=== PATIENT | male | born 1950 | race Caucasian/White ===

== ENCOUNTER 2020-12-13 14:09 | Outpatient (REF) | payer MEDICARE, SELFPAY ==
[2020-12-13 15:25] LABS: Blood Urea Nitrogen 21 mg/dL (9-16); Estimated Glomerular Filt Rate 59
== END 2020-12-13 14:10 | disposition home or self-care (01) ==
LOC: HO.LAB 14:09
PROVIDERS: PCP Internal Medicine; Visit Provider Psychiatry & Neurology Neurology
DX: H81.09 Meniere's disease, unspecified ear (principal); I10 Essential (primary) hypertension
CPT/HCPCS: 36415; 82565; 84520

== ENCOUNTER 2020-12-21 10:39 | Outpatient (REF) | payer MEDICARE, SELFPAY ==
--- NOTE | ~2020-12-21 | MR_ITS ---
EXAMINATION: MR BRAIN WITHOUT AND WITH CONTRAST CLINICAL INFORMATION: Meniere syndrome. Vertigo and right-sided tinnitus. COMPARISON: None. TECHNIQUE: Multiplanar, multisequential imaging was obtained without and with intravenous contrast. Intravenous contrast: Gadavist 9 mL. FINDINGS: No diffusion abnormality is seen. Mild chronic white matter microangiopathic changes noted. The ventricles are normal in size. No mass effect or midline shift is evident. No extra-axial fluid collections are noted. The brainstem and cerebellum are normal. On postcontrast imaging, there is no abnormal parenchymal or leptomeningeal enhancement. The VII and VIII cranial nerve complexes are normal in course and caliber. No signal abnormality is visualized within the inner ear structures on the precontrast axial T1-weighted sequence. Fluid signal is preserved within the cochlea, semicircular canals, and vestibule on the high-resolution axial FIESTA sequence. No cerebellopontine angle lesion is noted. There is no abnormal labyrinthine or intracanalicular enhancement on postcontrast imaging. The craniovertebral junction, marrow signal, and midline structures are normal. The gradient refocused acquisition is normal. The visualized portions of the major intracranial flow voids at the level of the [place] are preserved. The dural venous sinus flow voids are maintained. The mastoid air cells are well aerated. There is a small cyst along the floor of the left maxillary sinus which may be associated with the underlying molar tooth roots. MR/MR head/brain wo/w con IMPRESSION: No retrocochlear pathology. Mild chronic white matter microangiopathy. Incidental small 1.3 cm cyst along the floor of the left maxillary sinus which may represent a retention cyst or possibly a radicular cyst associated with the underlying molar tooth roots; clinically correlate.
== END 2020-12-21 10:40 | disposition home or self-care (01) ==
LOC: HO.MRI 10:39
PROVIDERS: PCP Internal Medicine; Visit Provider Psychiatry & Neurology Neurology
DX: H81.09 Meniere's disease, unspecified ear (principal)
CPT/HCPCS: 70553; A9585

== ENCOUNTER → 2021-03-21 07:07 | Outpatient (REF) | payer MEDICARE, SELFPAY ==
--- NOTE | 2021-03-21 06:30 | CA_ITS ---
Transthoracic Echocardiogram Patient (Last, First, Middle): Olvin Figueroa, Gender: Male Date of : 1950 Age: 70 Procedure Date: 03/21/2021 Procedure Type: Transthoracic Echocardiogram Location: OP Height: 177.8 cm Weight: 88.45 kg BSA: 2.06 m2 Heart Rate: bpm BP: 122 / 68 mmHg Director Of Recreation Therapy: Referring MD: Derek Delacruz MD Symptoms: SPELLS, TACHY Study Quality: Fair ECG Rhythm: Sinus Conclusions: - The left ventricular systolic function is normal. The visually estimated ejection fraction is between 60-65%. - There is mild mitral valve regurgitation. Findings Left Ventricle Normal left ventricular cavity size. The left ventricular systolic function is normal. The visually estimated ejection fraction is between 60-65%. There is no evidence of regional wall motion abnormalities. Diastolic function is normal for age. Mild concentric left ventricular hypertrophy but septal thickness is more prominent. Right Ventricle Normal right ventricular cavity size and systolic function. Atria Both atria are normal in size. Aortic Valve There is a normal trileaflet aortic valve. There is no aortic valve stenosis. There is no aortic valve regurgitation. Mitral Valve The mitral valve appears normal. There is mild mitral valve regurgitation. There is no mitral valve stenosis. Pulmonic Valve The pulmonic valve was not well visualized. Tricuspid Valve Normal tricuspid valve structure. There is trace tricuspid valve regurgitation. The pulmonary artery systolic pressure is normal. Great Vessels The asc aorta and aortic arch are normal in size. Venous The inferior vena cava is normal in size and collapses greater than 50% with inspiration. Pericardium/Pleural There is no evidence of pericardial effusion. Prior Study Comparison No prior study available for comparison. Measurements 2D Linear Measurements RVIDd: 2.68 RVIDd Index: 1.30 IVSd: 1.22 0.6-0.9/0.6-1.0 cm LVIDd: 4.96 3.9-5.3/4.2-5.9 cm LVIDd Index: 2.41 2.4-3.2/2.2-3.1 cm/m2 LVIDs: 3.39 2.0-3.6 cm LVPWd: 1.10 0.7-1.1 cm Ao Root: 3.80 2.1-3.5 cm LA Diam: 4.40 2.7-3.8/3.0-4.0 cm LAIDs Index: 2.14 1.5-2.3 cm/m2 LV Mass: 274.36 67-162/88-224 g LV Mass Index: 133.18 43-95/49-115 g/m2 LVOT Diam: 2.10 3.0+(-)1.3 cm 2D Systolic Function EF 4C: 61.30 >55% EF 2C: 61.80 >55% EF BiP: 62.10 >55% Mitral Valve MV Pk E: 0.68 MV PK A: 0.38 MV Decel Time: 203.00 E/A: 1.80 E'Lateral: 9.25 E'Medial: 6.53 E/E' Med: 10.40 E/E' Lat: 7.30 MR Vol - PW Dopp: 11.76 MR VTI: 1.47 MR ERO: 8.00 MR Alias Josh: 0.42 MR RAD: 0.40 Aortic Valve AoV Pk Josh: 1.12 AoV Mn Josh: 0.89 AoV VTI: 0.25 AoV Pk Grad: 5.00 Aov Mn Grad: 3.00 DAYA Cont.VTI: 3.64 LVOT LVOT Pk Josh: 1.09 LVOT Mn Josh: 0.74 LVOT VTI: 0.26 LVOT Pk Grad: 5.00 LVOT Mn Grad: 3.00 LVOT Diam: 2.10 LVOT Area: 3.46 Diastolic Function MV Pk E: 0.68 MV Pk A: 0.38 E/A: 1.80 E'Medial: 6.53 E/E' Med: 10.40 E' Laterial: 9.25 E/E' Lat: 7.30 Tricuspid Valve TR Pk Josh: 2.35 TR Pk Grad: 22.00 RA Press: 3.00 RVSP: 25.00 Great Vessels Aorta Ao Root-2D: 3.80 2.0-3.7 cm Ao Asc: 3.70 2.1-3.4 cm Ao Arch: 3.00 Updated in Other Vendor System with Status of Final Jose Dunn MD electronically signed on 03/21/2021 10:20:08 AM with status of Final
== END ==
LOC: HO.CARD 07:07
PROVIDERS: Visit Provider Psychiatry & Neurology Neurology
DX: R00.0 Tachycardia, unspecified (principal); R56.9 Unspecified convulsions
CPT/HCPCS: 93306

== ENCOUNTER → 2021-03-31 13:10 | Outpatient (REF) | payer MEDICARE, SELFPAY ==
--- NOTE | 2021-03-31 | ECG_ITS ---
Hook-up date: 2021-03-31 13:29:00 Duration: 47:59:00 Test Indications: TACHYCARDIA Medications: 280305 QRS complexes 258 Ventricular ectopics which represent <1 % of total QRS comp. 7200 Supraventricular ectopics which represent 3 % of total QRS comp. * Paced QRS complexs which represent % of total QRS comp. VENTRICULAR ECTOPY 258 Isolated 0 Bigeminal Cycles 0 Couplets 0 Runs 0 Beats in Runs * Beats LONGEST at * BPM at :: -- * Beats FASTEST at * BPM at :: -- SUPRAVENTRICULAR ECTOPY 4206 Isolated 475 Couplets 232 Runs 2044 Beats in Runs 805 Beats LONGEST at 198 BPM at 19:15:20 2021-04-01 805 Beats FASTEST at 198 BPM at 19:15:20 2021-04-01 HEART RATES 45 MIN at 02:14:45 2021-04-02 71 AVG 214 MAX at 19:18:31 2021-04-01 LONGEST RR 1.6960 secs at 05:08:50 2021-04-02 S-T LEVELS Channel 1 - 128 mm at 13:29:00 2021-03-31 - 128 mm at 13:29:00 2021-03-31 Channel 2 - 128 mm at 13:29:00 2021-03-31 - 128 mm at 13:29:00 2021-03-31 Channel 3 - 128 mm at 03:24:81 -- - 128 mm at 03:24:81 Basic rhythm Normal sinus rhythm No long pause or profound bradycardia Frequent Premature atrial complexes One 805 beat long episode of SVT at 198 bpm. Patient reported symptoms of dizziness correlated with SVT Referred By: Derek Delacruz Overread By: ERIBERTO CHAWLA MD
== END ==
LOC: HO.CARD 13:10
PROVIDERS: PCP Internal Medicine; Visit Provider Psychiatry & Neurology Neurology
DX: R56.9 Unspecified convulsions (principal); R00.0 Tachycardia, unspecified
CPT/HCPCS: 93225; 93226

== ENCOUNTER 2024-11-04 13:15 | Outpatient (AMB) | payer MEDICARE, SELFPAY ==
--- NOTE | 2024-11-04 13:16 | MHC.OFFVIS ---
Vital Signs 11/04/24 13:19 Height 5 ft 10 in Weight 188 lb BMI 27.0 BP 126/68 Blood Pressure Location Rt brachial Position Sitting Pulse 85 Pulse Oximetry (%) 99 Oxygen Delivery Method Room Air Intake Visit Reasons: COPD Alternative Dispute Resolution Mediator Required: No Bottoming Room Inspector: Bottoming Room Inspector offered & declined Accompanied by: Self / Same As Patient Allergies labetalol Allergy (Verified 11/04/24 13:32) Unknown Medication List - Last Reconciled 11/04/24 by Heidy Hull LPN aspirin (Adult Aspirin Regimen) 81 mg PO DAILY dicyclomine 20 mg PO TID PRN famotidine 40 mg PO BEDTIME finasteride 5 mg PO DAILY hydrochlorothiazide 25 mg PO DAILY lisinopril 10 mg PO DAILY loratadine 10 mg PO DAILY zolpidem 10 mg PO BEDTIME PRN HPI HPI COPD: Details: Olvin is a pleasant 74 year old male, never smoker, with underlying asthma, COPD, Osorio's esophagus, GERD, CKD, BPH, HTN, HLD. RA, seizure disorder and cardiac arrhthymia s/p ablation. He was referred by PCP for pulmonary evaluation. He was previously under the care of [facility] however due to insurance coverage had to switch providers. He reports being diagnosed with COPD 5 years ago based of prior PFT however experiences minimal symptoms. He reports occasional dyspnea on moderate exertion and intermittent dry cough. He reports one episode of wheezing last year in which he required albuterol otherwise has not used in years. Of note, this exacerbation was triggered by significant reflux. He endorses reflux in the past however has been well controlled using multiple supplements. He reports h/o childhood asthma and mild seasonal allergies. He denies any occupational exposures. He is up to date on vaccinations. [facility] Social History (Updated 11/04/24 @ 13:24 by Heidy Hull LPN) Patient Tobacco Use Status: Never used Tobacco Review of Systems Const Denies chills, Denies excessive sweating, Denies fever(s), Denies headache(s) and Denies night sweats Eyes Denies dry eyes, Denies irritation and Denies itchy eyes ENT Reports Normal hearing present, Denies headache(s), Denies nasal congestion, Denies nasal discharge, Denies post nasal drip and Denies sore throat Card Denies chest pain, Denies chest pain at rest, Denies chest pain with activity, Denies claudication, Denies leg edema, Denies orthopnea and Denies paroxysmal nocturnal dyspnea Resp Denies chest congestion, Denies excessive phlegm production, Denies pain on inspiration, Denies pain with cough, Denies stridor and Denies wheezing Musc Denies myalgias Neuro Reports Normal hearing present and Denies headache(s) Endo Denies excessive sweating Karl/Lymph Denies lymphadenopathy Aller/Immun Denies itchy eyes, Denies seasonal rhinorrhea and Denies wheezing Physical Exam Vital Signs: Last Vital Signs Pulse 85 11/04/24 13:19 BP 126/68 11/04/24 13:19 Pulse Ox 99 11/04/24 13:19 Oxygen Delivery Method Room Air 11/04/24 13:19 BMI result Body Mass Index 27.0 Const General: cooperative, healthy appearing, comfortable, no acute distress, well developed and alert Orientation/consciousness: patient oriented x3 Limitations: no limitations HEENT Head: Yes normal to inspection, Yes normocephalic and Yes atraumatic Ears: hearing grossly normal bilaterally and external ears normal Eyes General: appearance normal, both eyes and all related structures Eyelids: Yes eyelids normal Sclerae: sclerae normal EOM: EOMs intact bilaterally Neck Neck: Yes normal visual inspection and Yes no lymphadenopathy Lymphatic: no lymphadenopathy noted Chest Chest palpation & inspection: normal inspection of the chest Resp Effort & Inspection: normal respiratory effort, able to speak in complete sentences, no audible wheezes, no cough, no stridor, not tachypneic, no tripod positioning and no use of accessory muscles Auscultation: clear to auscultation bilaterally Cardio Jugular venous distension: no JVD Rate: regular rate Rhythm: regular rhythm Skin Other: warm, dry General skin exam: no rashes or lesions noted Neuro General: patient oriented x3 Cranial nerves: Yes Normal hearing present Cognition (Neuro): normal cognition Gait exam (Neuro): Normal gait present Extrem General: Yes normal to inspection, Yes capillary refill normal, Yes no clubbing, cyanosis or edema and Yes no pedal edema Psych Appearance: grossly normal and well kempt Speech and movement: Normal speech and movement present and Clear speech present Affect: normal affect Attitude: cooperative Thought process: Normal thought process present Thought content: Normal thought content present Insight: Good insight present (Psych) Judgement: Good judgement present (Psych) Assessment & Plan Assessment & Plan (1) Asthma: Code(s): J45.909 - Unspecified asthma, uncomplicated Category: Medical (2) COPD (chronic obstructive pulmonary disease): Code(s): J44.9 - Chronic obstructive pulmonary disease, unspecified Category: Medical Plan Olvin presents for pulmonary evaluation for underlying asthma/COPD. Will send for PFT to assess severity. He reports having chest imaging last year at [facility], will request images. At this time, he feels symptoms are well controlled requiring albuterol very infrequently. He is aware if symptoms become more persistent will discuss daily inhaler. All questions were answered and patient is in agreement of plan. Will follow up to review PFT results and records or sooner if needed. Orders: Orders PFT pulmonary function test Today J44.9 - Chronic obstructive pulmonary disease, unspecified, J45.909 - Unspecified asthma, uncomplicated Coding Level of Care Code New Pt Level 3 (58732) Diagnoses Asthma J45.909 COPD (chronic obstructive pulmonary disease) J44.9
[2024-11-04 13:19] VITALS: BP 126/68; PULSE 85; O2SAT 99; BMI 27.0
--- OUTSIDE RECORDS SUMMARY | 2024-11-04 15:50 | XMS_ITS | Continuity of Care Document ---
Author Organization [place] - [facility], [facility] Address [address] [place] [address] Care Team Providers Care Generator Operator Name Role Phone NATHEN MAYFIELD Primary Care Provider Assessment Encounter Date Assessment Date Assessment LastModified by Organization Details LastModified Time 09/29/2024 09/29/2024 74-year-old male presents for reevaluation of swallowing concerns and hoarseness. As he has had improvement with use of Flonase he will continue. Discussed crusting and application to avoid irritation. Given persistent sore throat in relation to reflux laryngoscopy was performed today and is consistent with reflux with no mass, lesion, or ulceration. He should follow-up with his GI doctor for break clear through reflux and continue famotidine in the meantime. Lifestyle modifications also discussed. Follow-up here as needed. [email or web address] Not available 09/29/2024 12:08:18 Plan of Treatment Reminders Order Date Submit Date Provider Last Modified By Organization Details Last Modified Time Details Appointments None record ed. Lab None record ed. Referral None record ed. Procedures None record ed. Surgeries None record ed. Imaging None record ed. Medication Orders None record ed. Patient TargetsNo targets recorded. Patient InstructionsNo instructions recorded. Reason for Referral None Reported. 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 - [facility] [place] 4 11:15:02 Impacted cerumen of bilatera l ears 42149021268 Active 2023 PRABHJOT BANKS PA-C [address] [place] [address],[place] [address], [place], [address] , [facility] - [facility] [place] 4 12:00:04 Posterio r rhinorrh ea 19608927 Active 2023 PRABHJOT BANKS PA-C [address] [place] [address],[place] [address], [place], [address] , [facility] - [facility] [place] 4 12:00:32 Chronic hoarsene ss 04598447019 05 Active 2023 PRABHJOT BANKS PA-C [address] [facility],[address], [place], [address] , [place] - [facility] [place] 4 12:08:31 Dysphagi a 79304653 Active 2023 PRABHJOT BANKS PA-C [address] [facility],[address], [place], [address] , [place] - [facility] [place] 4 12:08:34 Gastroes ophageal reflux disease without esophagi tis 834058796 Active 2023 PRABHJOT BANKS PA-C [address] [facility],[place] [address], [place], [address] , [facility] - [facility] [place] 4 12:08:37 Problem Notes None recorded. Procedures Surgical History Date Name Laterality Status Provider Name and Address Organization Details Recorded Time 4 FOL_Reflux_JMS completed PRABHJOT BANKS PA-C [address] [facility],[place] [address], [place], [address], [place] - [facility] 09/29/2024 12:07:30 4 Cerumen removal without microscope bilat completed PRABHJOT BANKS PA-C [address] [facility],[place] [address], [place], [address], [facility] - [facility] 07/31/2024 11:59:21 4 Air & Speech Audio with Tymps (77013, 19230 & 66558) completed CARISSA COVARRUBIAS MA, CCC-A [address] [facility],[place] [address], [place], [address], [place] - [facility] 07/31/2024 11:14:33 Imaging Results None recorded. Procedure Notes None recorded. Medical Equipment None Reported. Allergies No known drug allergies Medications Name Sig Start Date Stop Date Status Note LastModified by Organization Details LastModified Time azithromy shelbi 250 mg tablet TAKE 2 TABLETS BY MOUTH TODAY, THEN TAKE 1 TABLET DAILY FOR 4 DAYS DIRECTED 07/31 completed Not Available Not Available Not Available lisinopri l 20 mg tablet TAKE 1 TABLET BY MOUTH DAILY active Not Available Not Available No t Available famotidin e 40 mg tablet TAKE 1 TABLET BY MOUTH EVERY DAY active Not Available Not Available No t Available prednison e 20 mg tablet TAKE 3 TABS FOR 2 DAYS, THEN TAKE 2 TABS FOR 2 DAYS, THEN TAKE 1 TAB FOR 2 DAYS 07/31 completed Not Available Not Available Not Available Debrox 6.5 % ear drops INSTILL 5 DROPS INTO BOTH EARS TWICE DAILY [id number]. TILD HEAD SO EAR TO BE TREATED POINTS TOWARDS CEILING AND HOLD DROPS IN EAR USING COTTON BALL active Not Available Not Available No t Available pimecroli mus 1 % topical cream APPLY TO TO THE AFFECTED AREA OF PSORIASI S ON THIN-SKI NNED AREAS TWICE DAILY NEEDED active Not Available Not Available No t Available benzonata te 100 mg capsule TAKE 1 CAPSULE BY MOUTH 3 TIMES DAILY NEEDED FOR COUGH FOR UP TO 14 DAYS. 07/31 completed Not Available Not Available Not Available lisinopri l 10 mg tablet TAKE 1 TABLET BY MOUTH EVERY DAY FOR 90 DAYS active Not Available Not Available No t Available hydrochlo rothiazid e 25 mg tablet TAKE 1 TABLET BY MOUTH EVERY DAY active Not Available Not Available No t Available methylpre dnisolone 4 mg tablets in a dose pack 01/28 completed Medicati on ID: [id number] D uration Value: 6 Brand Name: methylpr jody martínez Send Method: E-Prescr ibed Sub s Allowed: subs OK Speci al Instruct ion: TAKE DIRECTED Medicat ionGener icName: methylpr jesusolo ne Not Available Not Available Not Available albuterol sulfate HFA 90 mcg/actua tion aerosol inhaler INHALE 2 PUFFS INTO THE LUNGS EVERY 4 HOURS NEEDED FOR COUGH, WHEEZING OR SHORTNES S OF BREATH. active Not Available Not Available No t Available fluticaso ne propionat e 50 mcg/actua tion nasal spray,negrito pension SPRAY 2 SPRAYS INTO EACH NOSTRIL EVERY DAY 2024 active Not Available Not Available Not Avai lable finasteri de 5 mg tablet TAKE 1 TABLET BY MOUTH EVERY DAY active Not Available Not Available No t Available loratadin e 10 mg tablet TAKE 1 TABLET BY MOUTH EVERY DAY active Not Available Not Available No t Available mometason e 0.1 % topical cream APPLY TOPICALL Y TWICE A DAY TO RASH ON HANDS NEEDED active Not Available Not Available No t Available amoxicill in 875 mg-potass ium clavulana te 125 mg tablet TAKE 1 TABLET BY MOUTH TWICE DAILY FOR 10 DAYS 07/31 completed Not Available Not Available Not Available azithromy shelbi 500 mg tablet 01/28 completed Medicati on ID: [id number] D uration Value: 7 Brand Name: azithrom ycin Sen d Method: E-Prescr ibed Sub s Allowed: subs OK Speci al Instruct ion: TAKE 1 TABLET DAILY FOR 7 DAYS Med icationG enericNa me: azithrom ycin Not Available Not Available Not Available Gavilyte- C 240 gram-22.7 2 gram-6.72 gram-5.84 gram oral solution 01/28 completed Medicati on ID: [id number] D uration Value: 1 Brand Name: GaviLyte -C Send Method: E-Prescr ibed Sub s Allowed: subs OK Speci al Instruct ion: USE DIRECTED Medicat ionGener icName: GaviLyte -C Not Available Not Available Not Available Vitals Date Recorded Body height Body mass index (BMI) Body weight Provider Name and Address Organization Details Last Updated DateTime 09/29/2024 177.8 cm 28 kg/m2 84863.51 g Marcelina Antoine [place] - [facility] 09/29/2024 10:56:38 Social History None recorded. Functional Status None recorded. Mental Status None recorded. Family History Nothing Reported. Medical History No medical history recorded. Past Encounters Encounter ID Performer Location Encounter Start Date Encounter Closed Date Diagnosis/Indication Diagnosis SNOMED-CT Code Diagnosis ICD10 Code Diagnosis Note [id number] DENNY NORMAN MD [facility] [address] [address] 09/29/2024 10:40:12 09/29/2024 11:34:30 Posterior rhinorrhea 96943508 R09.82 Chronic hoarseness 27201 75718 105 R49.0 Dysphagia 63393885 R13.1 0 Gastroesop hageal reflux disease without esophagitis 564562132 K21.9 Health Concerns Section Related Observation LastModified by Organization Detai ls LastModified Time None Recorded Concern Status LastModified by Organization Details LastModified Time None Recorded Payers Encounter Date Sequence Insurance Name Policy Number Policy Blunt Covered Member ID Blunt Member ID Guarantor Name 09/29/2024 1 [employer] (MEDICARE REPLACEMENT PPO) [id number] Diane Figueroa [id number] Olvin Figueroa Notes Date Note Type Note Provider Name and Address Organization Details Recorded Time 09/29/2024 text/html 74-year-old male presents for reevaluation of hoarseness and swallowing concern. Was prescribed Flonase at last visit as he felt his postnasal drip was causing dysphagia. Flonase has helped significantly with hoarseness and swallowing difficulty. He has been having more breakthrough reflux. 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 Takes famotidine daily. DENNY NORMAN MD [address] [place] [address], [phone], [facility] - [facility] 09/30/2024 13:19:50
== END 2024-11-04 13:49 | disposition home or self-care (01) ==
PROVIDERS: PCP Physician Assistant Medical; Referring Provider Physician Assistant Medical; Visit Provider Nurse Practitioner Family
DX: J45.909 Unspecified asthma, uncomplicated (principal); J44.9 Chronic obstructive pulmonary disease, unspecified
CPT/HCPCS: 99203

== ENCOUNTER → 2024-11-04 13:15 | Outpatient (BNVA) | payer MEDICARE, SELFPAY | PROVIDERS: PCP Physician Assistant Medical; Referring Provider Physician Assistant Medical; Visit Provider Nurse Practitioner Family | DX: J44.9 Chronic obstructive pulmonary disease, unspecified (principal) | CPT/HCPCS: 99202 ==

== ENCOUNTER 2024-12-11 10:21 | Outpatient (REF) | payer MEDICARE, SELFPAY ==
--- NOTE | 2024-12-11 10:47 | PFT_ITS ---
Flows: FEV1: 72 % of predicted at 2.16 L FVC: 83 % of predicted at 3.35 L FEV1/FVC: 64 % Bronchodilator response: Absent Volumes: Total lung capacity: 72 % of predicted at 5.12 L Residual volume: 64 % of predicted at 1.72 L Slow vital capacity: 80 % of predicted at 3.40 L Expiratory reserve volume: 84 % of predicted at 1.03 L Diffusion capacity: Moderately decreased, corrects to normal after adjustment for alveolar ventilation. Impression: Combined moderate obstructive and restrictive ventilatory defects with no bronchodilator response. Decreased diffusion capacity suggests emphysema. MTDD
--- OUTSIDE RECORDS SUMMARY | 2024-12-11 11:12 | XMS_ITS | Data Portability ---
Author Organization [place] - [facility], Allergy Address [address] [address] Care Team Providers Care Cpa Tax Name Role Phone NATHEN MAYFIELD Primary Care Provider [phone] Assessment Encounter Date Assessment Date Assessment LastModified by Organization Details LastModified Time 07/31/2024 07/31/2024 74-year-old male presents for updated hearing test in preparation for hearing aids. Cerumen was removed bilaterally. TMs normal to inspection. He continues to have mild to severe sloping sensorineural hearing loss bilaterally which is symmetrical. Would be an excellent candidate for amplification. Was provided updated hearing test along with clearance for bilateral aids. In regard to swallowing and occasional hoarseness it is likely related to his postnasal drip exacerbated by reflux. Recommended a trial of Flonase and instructed him in proper use. He will follow-up in 6 to 8 weeks for reevaluation. If he continues to have difficulty swallowing consider modified barium swallow. Could also consider heartburn management if Flonase is not beneficial. evita Not available 07/31/2024 11:57:07 09/29/2024 09/29/2024 74-year-old male presents for reevaluation [...] modifications also discussed. Follow-up here as needed. [email or web address] Not available 09/29/2024 12:08:18 Plan of Treatment Reminders Order Date Submit Date Provider Last Modified By Organization Details Last Modified Time Details Appointments Establish ed 15 2024 03:00P M PRABHJOT BANKS PA-C Not available Not available Not available Lab None recorded. Referral None recorded. Procedures None recorded. Surgeries None recorded. Imaging None recorded. Medication Orders fluticaso ne propionat e 50 mcg/actua tion nasal spray,negrito pension 2023 024 [facility] #[id number], [address] [place] [address], [place], [address], 07/31/2024 12:01:01 Patient TargetsNo targets recorded. Patient InstructionsNo instructions recorded. Reason for Referral None Reported. Results Created Date Observation Date Name Description Value Unit Range Abnormal Flag Note LastModifiedBy Organization Detail LastModifiedTime 07/31/20 24 audio gram No observ ation record ed. [email or web address] Not Available 08/2024 14:38:20 Result Notes None recorded. Problems Name Problem SNOMED Code Status Onset Date Resolution Date Notes Provider Name and Address Organization Details Recorded Time Acute sinusiti s 55689296 Completed 201705/22/2024 Other acute sinusiti s; Note: Date Diagnose d: 12/20/2017 1:37 PM (J01.80) Not Available [facility] 4 03:19:27 Sensorin eural hearing loss of bilatera l ears 964523110 Active 2018 Sensorin eural hearing loss, bilatera l; Note: Date Diagnose d: 9 5:11 PM (H90.3) Not Available [facility] 4 03:19:26 Bilatera l disorder of Eustachi an tubes 53315830671 88425 Active 2018 Other specifie d disorder s of Eustachi an tube, bilatera l; Note: Date Diagnose d: 9 10:24 AM (H69.83) Not Available [facility] 4 03:19:26 Headache 37164287 Active 2017 Facial pain NOS; Note: Date Diagnose d: 12/20/2017 1:37 PM (R51) Not Available [facility] 4 03:19:26 Tinnitus of right ear 19453541299 08 Active 2023 CARISSA COVARRUBIAS MA, CCC-A [address] [facility] [place] [facility], [place], [address] , [facility] - [facility] 4 11:15:02 Impacted cerumen of bilatera l ears 23223942873 27150 Active 2023 PRABHJOT BANKS PA-C [address] [facility] [place] [facility], [place], [address] , [facility] - [facility] 4 12:00:04 Posterio r rhinorrh ea 35239323 Active 2023 PRABHJOT BANKS PA-C [address] [facility] [place] [facility], [place], [address] , [facility] - [facility] 4 12:00:32 Chronic hoarsene ss 05598629492 05 Active 2023 PRABHJOT BANKS PA-C [address] [facility] [place] [facility], [place], [address] , [facility] - [facility] 4 12:08:31 Dysphagi a 86025733 Active 2023 PRABHJOT BANKS PA-C [address] [facility] [place] [facility], [place], [address] , [facility] - [facility] 4 12:08:34 Gastroes ophageal reflux disease without esophagi tis 347537055 Active 2023 PRABHJOT BANKS PA-C [address] [facility] [place] [facility], [place], [address] , [facility] - [facility] 4 12:08:37 Problem Notes None recorded. Procedures Surgical History Date Name Laterality Status Provider Name and Address Organization Details Recorded Time 4 FOL_Reflux_JMS completed PRABHJOT BANKS PA-C [address] [facility],[place] [address], [place], [address], [facility] - [facility] 09/29/2024 12:07:30 4 Cerumen removal without microscope bilat completed PRABHJOT BANKS PA-C [address] [facility] [address], [place], [address], [facility] - [facility] 07/31/2024 11:59:21 Air & Speech Audio with Tymps ([id number], 50424 & 82771) completed CARISSA COVARRUBIAS MA, CCC-A [address] [facility] [address], [place], [address], [facility] - [facility] 07/31/2024 11:14:33 Imaging Results Imaging Date Name Status LastModified by Organiz ation Details LastModified Time 07/31/2024 audiogram completed [facility] Information not available 07/31/2024 14:38:20 Procedure Notes None recorded. Medical Equipment None [...] 5 DROPS INTO BOTH EARS TWICE DAILY [id number]. TILD HEAD SO EAR TO BE TREATED [...] dose pack 01/28 completed Medicati on ID: [id number] D uration Value: 6 Brand Name: methylhiwot martínez Send Method: E-Prescr ibed Sub s Allowed: subs TATIANA Speclalit al Instruct ion: TAKE DIRECTED Medicat ionGener icName: methylpr jody ne Not Available Not Available Not Available [...] mg tablet 01/28 completed Medicati on ID: [id number] D uration Value: 7 Brand Name: azithrom ycin Sen d Method: E-Prescr ibed Sub s Allowed: subs TATIANA Speclalit al Instruct ion: TAKE 1 TABLET DAILY FOR 7 DAYS Med icationG enericNa me: azithrom ycin Not Available Not Available Not Available Gavilyte- C 240 gram-22.7 2 gram-6.72 gram-5.84 gram oral solution 01/28 completed Medicati on ID: [id number] D uration Value: 1 Brand Name: GaviLyte -C Send Method: E-Prescr ibed Sub s Allowed: subs OK Speci al Instruct ion: USE DIRECTED Medicat ionGener icName: GaviLyte -Paramjit Not Available Not Available Not Available Vitals Date Recorded Body height Body mass index (BMI) Body weight Provider Name and Address Organization Details Last Updated DateTime 07/31/2024 177.8 cm 28 kg/m2 13063.51 g Leann Cms [facility] 07/31/2024 11:20:56 Date Recorded Body height Body mass index (BMI) Body weight Provider Name and Address Organization Details Last Updated DateTime 09/29/2024 177.8 cm 28 kg/m2 75561.51 g Marcelina Canaleschner [facility] 09/29/2024 10:56:38 Social History None recorded. Functional Status None recorded. Mental Status None recorded. Family History Nothing Reported. Medical History No medical history recorded. Past Encounters Encounter ID Performer Location Encounter Start Date Encounter Closed Date Diagnosis/Indication Diagnosis SNOMED-CT Code Diagnosis ICD10 Code Diagnosis Note [id number] TAWANA UGALDE MD [facility] [address] [address] 07/31/2024 10:32:13 07/31/2024 12:14:54 Sensorineural hearing loss of bilateral ears 374639869 H90.3 Audiologic al evaluation results: Right ear: {{Normal N ormal through 2 kHz Mild M oderate Mo derately-s evere Veronika re Profoun d Normal hearing thru 1000Hz sloping#}} {{hearing sloping to a mild slopi ng to a moderate s loping to moderately severe slo ping to severe slo ping to profound f lat high frequency low frequency mid frequency cookie bite farah curve to a mild to severe SNHL#}} {{with* se nsorineura l hearing loss with condu ctive hearing loss with mixed hearing loss with}} {{excellen t* good fa ir poor no measurable }} word recognitio n. Left ear: {{Normal N ormal through 2 kHz Mild M oderate Mo derately-s evere Veronika re Profoun d Normal hearing thru 1000Hz sloping to #}} {{hearing sloping to a mild slopi ng to a moderate s loping to moderately severe slo ping to severe slo ping to profound f lat high frequency low frequency mid frequency cookie bite farah curve a mild to moderate SNHL#}} {{with* se nsorineura l hearing loss with condu ctive hearing loss with mixed hearing loss with}} {{excellen t* good fa ir poor no measurable }} word recognitio n. Tympanomet ry: Right Ear:{{Type A* Type As Type Ad Type C Type C, shallow & rounded Ty pe B Type B with large volume Cou ld not maintain a hermetic seal}} Left Ear:{{Type A* Type As Type Ad Type C Type C, shallow & rounded Ty pe B Type B with large volume Cou ld not maintain a hermetic seal}}Rec. : Trial amplificat ion Tinnitus of right ear 48 11671892 108 H93.11 Impacted c erumen of bilateral ears 1346030407 668832 H61.23 Posterior rhinorrhea 758 44153 R09.82 [id number] DENNY NORMAN MD [facility] [address] [address] 09/29/2024 10:40:12 09/29/2024 11:34:30 Posterior rhinorrhea 92860047 R09.82 Chronic hoarseness 61615 90110 105 R49.0 Dysphagia 62198607 R13.1 0 Gastroesop hageal reflux disease without esophagitis 147426365 K21.9 Health Concerns Section Related Observation LastModified by Organization Detai ls LastModified Time None Recorded Concern Status LastModified by Organization Details LastModified Time None Recorded Advance Directives Directive None Recorded Payers Encounter Date Sequence Insurance Name Policy Number Policy Blunt Covered Member ID Blunt Member ID Guarantor Name 07/31/2024 1 [employer] (MEDICARE REPLACEMENT PPO) [id number] Olvin Figueroa [id number] Olvin Figueroa 09/29/2024 1 [employer] (MEDICARE REPLACEMENT PPO) [id number] Olvin Figueroa [id number] Olvin Figueroa Notes Date Note Type Note Provider Name and Address Organization Details Recorded Time 07/31/2024 text/html 74-year-old male presents for updated hearing test in preparation for hearing aids. He has also been having some difficulty swallowing mostly at night as well as intermittent hoarseness. He has postnasal drip which he believes is the cause of his intermittent hoarseness. He also has reflux for which he takes aloe vera juice. No history of smoking or other red flag symptoms. TAWANA UGALDE MD [address] [facility],[address], [address], [place] - [facility] 07/31/2024 16:32:47 09/29/2024 text/html 74-year-old male presents for reevaluation [...] GI. Takes famotidine daily. DENNY NORMAN MD [address] [facility],[place] [address], [place], [address], [facility] - [facility] 09/30/2024 13:19:50
--- OUTSIDE RECORDS SUMMARY | 2024-12-11 11:12 | XMS_ITS | Clinical Summary ---
Author Organization [address] [facility] Address [address] [place] [address] Phone Care Team Providers Care Reporter Anchor Name Role Phone Elmer Estes MD Primary Care Provider [phone] Allergies Active Allergy Reactions Criticality Noted Date Comments Labetalol Unknown 05/07/2022 Causes prostate to enlarge Medications loratadine (CLARITIN) 10 mg tablet Take 1 tablet (10 mg total) by mouth 1 (one) time each day. 04/10/2024 Active lisinopriL (PRINIVIL,ZESTR IL) 20 mg tablet Take 1 tablet (20 mg total) by mouth 1 (one) time each day. 04/09/2024 Active albuterol HFA (PROAIR HFA ; PROVENTIL HFA ; VENTOLIN HFA) 90 mcg/actuation inhaler Inhale 2 puffs by mouth every 4 (four) hours if needed. Active famotidine (PEPCID) 40 mg tablet Active finasteride (PROSCAR) 5 mg tablet Take 1 tablet (5 mg total) by mouth 1 (one) time each day. 11/19/2023 Active tacrolimus (PROTOPIC) 0.1 % ointment Apply 1 each topically. 10/22/2023 Active multivitamin (MULTIPLE VITAMINS ORAL) Take by mouth. Active aspirin 81 mg EC tablet Take 1 tablet (81 mg total) by mouth. Active ginkgo biloba leaf extract 60 mg tablet Take by mouth. Active ashwagandha extract 500 mg capsule Take by mouth. Active cinnamon bark extract 500 mg tablet Take 1,000 mg by mouth. Active saw palmetto 450 mg capsule Take 450 mg by mouth. Active vitamin A/vitamin D2/cod liver (VITAMINS A AND D ORAL) Take by mouth. Active turmeric root extract 500 mg capsule Take 500 mg by mouth. Active ascorbic acid (VITAMIN C) 1,000 mg tablet 1 tablet (1,000 mg total). 08/17/2010 Active calcium carbonate-vit D3-min 600 mg calcium- 400 unit tablet 1 (one) time each day. 08/17/2010 Active cholecalciferol (VITAMIN D-3) 10 mcg (400 unit) tablet 1 tablet (400 Units total). 08/17/2010 Active echinacea 500 mg capsule 500 mg. 08/17/2010 Active horse chestnut 300 mg capsule 300 mg. 08/17/2010 Acti ve milk thistle seed extract 175 mg capsule 175 mg. 08/17/2010 Acti ve VITAMIN E ACETATE ORAL 400 Units. 08/17/2010 Activ e zolpidem (AMBIEN) 10 mg tablet 1 tablet (10 mg total). 01/18/2015 Active ALOE VERA ORAL Take by mouth. Active Ca carb-D3-mag ia-gfu-dkxi-Zn 600 mg-20 mcg- 40 mg-0.25 mg tablet,chewable Chew. Acti ve omega-3 acid ethyl esters (LOVAZA) 1 gram capsule Take by mouth. Active coenzyme Q-10 100 mg capsule Take by mouth. Active hydroCHLOROthia zide (HYDRODIURIL) 25 mg tablet Take 1 tablet (25 mg total) by mouth 1 (one) time each day. 90 each 10/01/2024 Active dicyclomine (BENTYL) 10 mg capsuleIndicati ons:Abdominal discomfort Take 1 capsule (10 mg total) by mouth 4 (four) times a day if needed (abdominal pain or cramps). 60 capsule 09/29/2024 Active Active Problems Problem Noted Date Diagnosed Date History of insect bite 07/27/2024 Bilateral impacted cerumen 12/26/2023 Blocked ear, right 12/26/2023 Prediabetes 11/28/2023 Chronic kidney disease 11/28/2023 Small right kidney 11/28/2023 Bladder outlet obstruction 11/28/2023 Memory loss 11/28/2023 Gout 06/19/2021 Diverticulosis 06/19/2021 Overview (07/27/2024): Seen on 2018 colonoscopy. Also hx of diverticulitis. Pharyngeal dysphagia 06/19/2021 Colon polyp, hyperplastic 06/19/2021 Overview (07/27/2024): 2018 colonoscopy, repeat 2022. Constipation 06/19/2021 Gastroesophageal reflux disease without esophagi tis 06/19/2021 Overview (07/27/2024): Hx erosive esophagitis 03/31/2018 SSBE (short-segment Osorio's esophagus) 021 Malignant neoplasm of skin 06/19/2021 Elevated PSA 06/19/2021 Seizure disorder 06/19/2021 Atypical migraine 06/19/2021 Rheumatoid myopathy with rheumatoid arthritis Achilles bursitis 06/19/2021 Heberden's node 06/19/2021 Low back pain 06/19/2021 Localized swelling of right foot 06/19/2021 Meniere's disease 06/19/2021 Overview (07/27/2024): R ear. Psoriasis 06/19/2021 Overview (07/27/2024): Face and thighs. Lung field abnormal 06/19/2021 Strain of muscle, fascia and tendon of abdomen, initial encounter 06/19/2021 Mixed dysphasia 06/19/2021 Insomnia 06/19/2021 Loss of consciousness 06/19/2021 Duodenal erosion 03/31/2018 Dysphagia 02/25/2018 Lipoma of colon 01/13/2018 Chronic obstructive pulmonary disease 01/03/2018 ED (erectile dysfunction) 05/28/2017 Essential hypertension 07/27/2015 Hyperlipidemia 07/27/2015 Elevated fasting blood sugar 07/27/2015 Achilles tendinitis 07/27/2015 Overview (07/27/2024): Bilateral lower extremities 06/26/2016. Emphysema lung 07/27/2015 Rheumatoid arthritis 07/25/2015 Allergic rhinitis 05/23/2015 Sleep disorder 01/18/2015 Vitamin D deficiency 12/27/2014 Benign prostatic hyperplasia without urinary obs truction 12/27/2014 Tear film insufficiency 12/27/2014 Tracheobronchitis 11/09/2014 Overview (07/27/2024): Left side. 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 Encounters Date Type Department Care Team Description 09/16/2024 Telephone Adult Medicine [address] [address] Elmer Estes MD Med Refill from Last 3 Months Immunizations Name Administration Dates Next Due Influenza trivalent, 0.5mL ( Fluzone High-dose) 65yo and older 08/13/2019,07/31/2017,09/18/2016,2014 Influenza trivalent, 0.5mL, preservative free (Fluarix; FluLaval; Fluzone) ages 6mo and older (Afluria) 3 years and older 08/17/2011,08/24/2010,10/21/2002 Influenza trivalent, with preservative (Fluzone; Afluria) 6mo and older 07/12/2023,07/26/2022,07/26/2021,2019,08/14/2018,07/25/2014,10/05/2012 Pneumococcal conjugate 20 va lent (Prevnar 20, PCV 20) 2mo and older 08/29/2023 RSV, bivalent, protein subun it RSVpreF, 0.5mL, Preservative Free (Arexvy) 60yo and older 09/17/2023 Tdap Tetanus diptheria acell ular pertussis (Boostrix; Adacel) 7yo and older 10/31/2015 Zoster Live 08/17/2011 Zoster recombinant (Shingrix ) 19yo and older 11/22/2023 Surgical History Surgery Date Site/Laterality Comments COLONOSCOPY 2018 PROCEDURE: HISTORICAL COLONOSCOPY; COMMENT: Dr. Ben Nieves OTHER SURGICAL HISTORY 04/06/2016 PROCEDURE: SKIN EXCISION; COMMENT: Soft tissue tumor, back, subcutaneous 3cm or greater. Medical History Medical History Date Comments Hypertension DX:Hypertension Enlarged prostate DX:Enlarged pr ostate Acid reflux DX:Acid reflux Vitamin D deficiency 12/27/2014 DX:Vitamin D deficiency Tinnitus 06/11/2012 DX:Tinnitus Temporomandibular joint disorder 02/02/2013 DX:Temporomandibular joint disorder Syncope 06/19/2021 DX:Syncope Supraventricular tachycardia (CMS/HCC) DX:Supraventricular tachycardia (HCC) Rheumatoid myopathy with rhe umatoid arthritis (CMS/HCC) 06/19/2021 DX:Rheumatoid myopathy with rheumatoid arthritis (HCC) Rheumatoid arthritis (CMS/HCC) 07/25/2015 D X:Rheumatoid arthritis (HCC) Pulmonary nodules 07/19/2014 DX:Pulmonary n odules Psoriasis 06/19/2021 DX:Psoriasis; CO MMENT: Face and thighs Pleurisy without effusion or active tuberculosis 06/19/2021 DX:Pleurisy without effusion or active tuberculosis; COMMENT: Left side. Pharyngeal dysphagia 06/19/2021 DX:Pharynge al dysphagia Low back pain 06/19/2021 DX:Low back pain Lipoma of colon 01/13/2018 DX:Lipoma of col on Internal hemorrhoids 01/09/2014 DX:Internal hemorrhoids Insomnia 06/19/2021 DX:Insomnia Heberden's node 06/19/2021 DX:Heberden's no de Eustachian tube dysfunction 02/02/2013 DX:E ustachian tube dysfunction Essential hypertension 07/27/2015 DX:Essent ial hypertension Esophageal dyskinesia 07/21/2014 DX:Esophag eal dyskinesia Emphysema lung (CMS/HCC) 07/27/2015 DX:Emph ysema lung ([facility]) Elevated PSA 06/19/2021 DX:Elevated PSA Dysphagia 02/25/2018 DX:Dysphagia Duodenal erosion 03/31/2018 DX:Duodenal ero austyn Atypical migraine 06/19/2021 DX:Atypical mi graine Allergic rhinitis 05/23/2015 DX:Allergic rh initis Achilles bursitis 06/19/2021 DX:Achilles bu rsitis ED (erectile dysfunction) 05/28/2017 DX:ED (erectile dysfunction) Decreased libido 12/21/2013 DX:Decreased li marisa Constipation 06/19/2021 DX:Constipation Chronic obstructive pulmonar y disease ([facility]) 01/03/2018 DX:Chronic obstructive pulmo nary disease ([facility]) Benign prostatic hyperplasia without urinary obstruction 12/27/2014 DX:Benign prostatic hyperpla shane without urinary obstruction 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/19/2014 DX: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 Seizure disorder ([facility]) 06/19/2021 DX:Se izure disorder ([facility]) Gastroesophageal reflux dise ase without esophagitis 06/19/2021 DX:Gastroesophageal reflux d isease without esophagitis; COMMENT: Hx erosive esophagitis 03/31/2018 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 06/19/2021 DX:Therapy failure due to antibiotic resistance Loss of consciousness ([facility]) 06/19/2021 DX:Loss of consciousness ([facility]) 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 Also hx of diverticulitis. Meniere's disease 06/19/2021 DX:Meniere's d isease; COMMENT: R ear Gout 06/19/2021 DX:Gout Achilles tendinitis 07/27/2015 DX:Achilles tendinitis; COMMENT: Bilateral lower extremities 06/26/2016. History of skin cancer 06/19/2021 DX:Histor y of skin cancer; COMMENT: 04/06/2016 excision of soft tissue tumor of back subcutaneous 3cm or greater. Dr. Clinton. Colon polyp, hyperplastic 06/19/2021 DX:Col on polyp, hyperplastic; COMMENT: 2018 colonoscopy, repeat 2022. Lung field abnormal 06/19/2021 DX:Lung fiel d abnormal SSBE (short-segment Osorio' s esophagus) 06/19/2021 DX:SSBE (short-segment Hoonah tt's esophagus) Psoriasis DX:Psoriasis Family History Medical History Relation Name Comments Other: heart issue Father at 9 9 COPD Mother Dementia Mother at 90 Rheum arthritis Mother Relation Name Status Comments Father Mother Social History Tobacco Use Types Packs/Day Years Used Date Smoking Tobacco: Never Smokeless Tobacco: Never Alcohol Use Standard Drinks/Week Comments Yes 0 (1 standard drink = 0.6 oz pur e alcohol) Sex and Gender Information Value Date Recorded Sex Assigned at Not on file Legal Sex Male 4:58 PM EST Gender Identity Not on file Sexual Orientation Not on file Obstetrics History Last Filed Vital Signs Vital Sign Reading Time Taken Comments Blood Pressure 101/65 07/16/2024 3:21 PM EDT Pulse 65 07/16/2024 3:21 PM EDT Temperature - - Respiratory Rate - - Oxygen Saturation - - Inhaled Oxygen Concentration - - Weight 88.5 kg (195 lb) 07/16/2024 3:21 PM EDT Height 177.8 cm (5' 10 ) 06/05/2024 1:22 PM EDT Body Mass Index 27.98 06/05/2024 1:22 PM EDT Plan of Treatment Upcoming Encounters Date Type Department Care Team (Late st Contact Info) Description 08/19/2025 1:15 PM EDT Office Visit Nephrology - [place] [address] [place] [address] Sumit Wood MD [address] [facility] [address] [place] [address] Health Maintenance Due Date Last Done Comments Colorectal Cancer Screening: Colonoscopy 09/29/2022 Depression Screening 09/29/2022 Falls Risk Assessment 09/29/2022 Hepatitis C Screening 09/29/2022 Medicare Annual Wellness Visit 09/29/2022 Social Influencers of Health Screening 09/29/2022 COVID-19 Vaccine ( season) 2024 10/04/2023, 04/13/2022, 08/10/2021, Additional history exists Influenza Vaccine (#1) 2024 , 07/26/2022, 07/26/2021, Additional history exists Hypertension/CHF/CAD Annual BMP Blood Test 02/19/2025 02/20/2024 DTaP,Tdap,and Td Vaccines (2 - Td or Tdap) 10/31/2025 10/31/2015 Cholesterol Screening (Lipid Panel) 12/18/2028 12/18/2023 Pneumococcal Vaccine: 50+ Years Completed 08/29/2023 RSV Immunization Patients 60+ Years Old Completed 09/17/2023 Zoster Vaccines Completed 01/29/2024, 11/2023, 08/17/2011 HIB Vaccines Aged Out No longer eligi ble based on patient's age to complete this topic HPV Vaccines Aged Out No longer eligi ble based on patient's age to complete this topic Hepatitis A Vaccines Aged Out No long er eligible based on patient's age to complete this topic Hepatitis B Vaccines Aged Out No long er eligible based on patient's age to complete this topic IPV Vaccines Aged Out No longer eligi ble based on patient's age to complete this topic MMR Vaccines Aged Out No longer eligi ble based on patient's age to complete this topic Meningococcal ACWY Vaccine Aged Out N o longer eligible based on patient's age to complete this topic Meningococcal B Vacine Aged Out No lo nger eligible based on patient's age to complete this topic RSV Immunization Patients Under 20 months Aged Out No longer eligible based on patient's age to complete this topic Varicella Vaccines Aged Out No longer eligible based on patient's age to complete this topic Insurance [employer]AGE Care Teams Reporter Anchor Relationship Specialty Start Date End Date Elmer Estes MD [address] [place] [address] PCP - General 09/04/23
--- OUTSIDE RECORDS SUMMARY | 2024-12-11 11:12 | XMS_ITS ---
Author Organization [facility] Address [address] [facility] [place] [address] Care Team Providers Care Secretary Book Keeper Name Role Phone Franklyn Simbalove Primary Care Provider Unavailabl e Nirmal Afia Unavailable [phone] Oli Fontaine Unavailable Unavailable Allergies No Known Allergies Results Component Value Reference Range Notes X ray : Ankle, left 2V Reviewed date:10/31/2023 04:47:20 PM Interpretation:See Examination above Performing Lab: Notes/Report: See Examination above X ray : Foot, left 2V Reviewed date:10/31/2023 04:47:30 PM Interpretation:See Examination above Performing Lab: Notes/Report: See Examination above REASON FOR VISIT PCP 10/26/23, Ankle pain, Swelling Medications Medication SIG (Take, Route, Frequency, Duration) Notes Start Date End Date Status Lipoflavonoid Active Fish Oil Active Centrum Silver Activ e Vitamin A & D Active Saw Shawmut Active Ginkgo Biloba Active Horse [place] Activ e Cinnamon Active Turmeric Active Ashwagandha Active CoQ-10 Active Vitamin C Active Vitamin E Active Sujit Multivitamin for Men Active Echinacea Active hydroCHLOROthiazide 25 MG as directed Or ally Once a day Active Calcium & Magnesium Carbonates Active Famotidine 40 MG 1 tablet at bedtime Orally Once a day for 30 day(s) Active Loratadine 10 MG 1 tablet Orally Once a day for 30 day(s) Active Finasteride Active Lisinopril 20 MG Orally Act mike Colcrys 0.6 MG 1 tablet Orally Up to Four times a day for 5 days 02/08/2023 Not-Taking Compression Stockings 20-30m m Hg 1 pair wear daily for 30 days Active Naproxen Unknown Vitamin D Unknown Coconut Oil Not-Taki ng Omeprazole 20 MG 1 capsule 30 minutes before morning meal Orally Once a day for 30 day(s) Not-Taking ASO Ankle/Foot Stablizing AFO As directe d Wear Daily for as needed 04/12/2020 Not-Taking Naproxen 500 MG 1 tablet with food or milk as needed Orally every 12 hrs for 30 days 04/12/2020 Not-Taking Digestive Enzymes Un known Milk Thistle Active Amoxicillin-Pot Clavulanate 875 875-125 MG 1 tablet Orally every 12 hrs Not-Taking Colchicine 0.6 MG 1 tablet Orally 02/11/2023 Not-Taking Social History Alcohol Screen Question Answer Notes Did you have a drink containing alcohol in the p ast year? No Points 0 Interpretation Negative Tobacco use other than smoking: Question Answer Notes Are you an other tobacco user? No Problems Problem Type SNOMED Code ICD Code Onset Dates Problem Status W/U Status Risk Notes Problem Localized, primary osteoarthritis of the ankle and/or foot (839530901) 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) Active confirmed Problem Localized, primary osteoarthritis of the ankle and/or foot (177713926) Osteoarthritis of left ankle or foot (M19.072) Active confirmed Vital Signs Height 5ft 10in in 10/31/2023 Weight 195 lbs 10/31/2023 BMI 27.98 kg/m2 10/31/2023 Encounters Encounter Location Date Provider Diagnosis [facility] [address] [place] [address] 10/31/2023 Afia Black Arthralgia of left ankle M25.572 ; Osteoarthritis of left ankle or foot M19.072 ; Edema, lower extremity R60.0 ; Peroneal tendinitis, left M76.72 and Left foot pain M79.672 Assessments Encounter Date Diagnosis (ICD Code) Assessment Notes Treatment Notes Treatment Clinical Notes Section Notes 10/31/2023 Arthralgia of left ankle (ICD-10 - M25.572) 10/31/2023 Osteoarthritis of left ankle or foot (ICD-10 - M19.072) 10/31/2023 Edema, lower extremity (ICD-10 - R60.0) 10/31/2023 Peroneal tendinitis, left (ICD-10 - M76.72) 10/31/2023 Left foot pain (ICD-10 - M79.672) Plan Of Treatment Medication Medication Name Sig Start Date Stop Date Notes Compression Stockings 20-30mm Hg 1 pair wear daily for 30 days Next Appt Details Follow Up: prn, Reason: Progress Notes * Christine LYNNEOB: 9 (73 yo M)Acc No.[id number]:10/31/2023 Progress Note Patient:?Olvin Lynne Provider:?Afia Kinney DPM :1950???Age:73 Y???Sex:Male Constantino e:10/31/2023 Address:[address] [place] [address] [address] [facility], [place] [id number] Pcp:Elmer Estes Subjective: * Chief Complaints: * ???PCP 10/26/23Ankle painSwell ing * HPI: ???Ankle Pain:?Location:?L eft ankles.?Duration: ?two weeks.?Onset/Cause:?sudden, unknown, denies trauma.?Course:?worse.?Aggrevated by:?any pressure, standing, walking.?Treatments:?rest/alter normal daily activity,naprosyn.?Swelling:?Location:?Both feet/leg.?Duration:?several weeks.?Course:?worse.? * ROS:?General/Constitutional:?Nausea?denies.?Vomiting?denies.?Hunger Thirst?denies.?Loss appetite?denies.?Chills?denies.?Fatigue?denies.?Fever?denies.?Night Sweats?denies.?Unexplained weight loss?denies.?Unexplained weight gain?denies.?HEENTM:?Dentures?denies.?Dizziness?denies.?Glasses/contacts?denies.?Retinopathy?de nies.?Blurred/double vision?denies.?TMJ?denies.?Discharge/drainage?denies.?Implants?denies.?Sore throat?denies.?Dental implants?denies.?Hard of hearing ?denies.?Difficulty chewing/swallowing/speaking?denies.?Nose bleeds?denies.?Sore mouth?denies.?Respiratory:?On Oxygen?denies.?Pneumonia/pleurisy?denies.?Bronchitis?denies.?Emphysema?denies.?C oughing?denies.?Cough blood?denies.?Shortness of breath?denies.?Wheezing?denies.?Cardiovascular:?Pacemaker?denies.?MVP?denies.?WPW?denies.?CHF?denies.?Heart attack?denies.?Septal defect?denies.?Rapid beat?denies.?Chest pain ?denies.?Atrial Fib.?denies.?Murmur/Palpitations?denies.?Gastrointestinal:?Hemorrhoids?denies.?Stomach/Abdominal pain?denies.?Dark blood stool?denies.?Irritable bowel ?denies.?Constipation?denies.?Diarrhea?denies.?Hematology:?Swelling?admits.?Clots?denies.?Varicose Veins?admits.?Bruising?denies.?Bleeding problem?denies.?Genitourinary:?Blood urine?denies.?Frequent/Painfu/urination/bladder control?denies.?Kidney stones?denies.?Infection (UTI)?denies.?Nephropathy?denies.?sex trans dis (STD)?denies.?Prostate?admits.?Musculoskeletal:?Hammertoes?denies.?Bunions?denies.?Back Pain?denies.?Muscle Cramps/ Resting?denies.?Muscle cramps / walking?denies.?Generalized aches and pains?denies.?Weakness?denies.?Integ.:?Rodriguez?denies.?Scars?denies.?Corns/calluses?denies.?Ingrown nails?denies.?Painful nails?denies.?Open Sores?denies.?Rashes?denies.?Neurologic:?Difficulty sleeping?denies.?Brain disorder?denies.?Numbness?denies.?Balance trouble?denies.?Confusion?denies.?Fainting/blackouts?denies.?Tingling?denies.?Tr emors?denies.? * Medical History:? * Surgical History:?shoulder s urgery * Hospitalization/Major Diagno stic Procedure:?No Hospitalization History. * Family History:?Mother: dece ased, diagnosed with Family history of arthritis, Unspecified cerebral artery occlusion with cerebral infarction.?Father: .?Son(s): alive.?Spouse: alive.?Paternal aunt: diagnosed with Unspecified essential hypertension.?Maternal aunt: diagnosed with Unspecified essential hypertension, Other malignant neoplasm of unspecified site.?2 son(s) . .? * Social History:?Tobacco Use:?Tobacco Use/Smoking?Are you a:: nonsmoker , Additional Findings: Tobacco Non-User: Current non-smoker.?Tobacco use other than smoking?Are you an other tobacco user??No ???Drugs/Alcohol:?Drugs?Have you used drugs other than those for medical reasons in the past 12 months??No ?Alcohol Screen?Did you have a drink containing alcohol in the past year??No ?Points?0 ?Interpretation?Negative ???Miscellaneous:?Caffeine: yes, frequency: Rarely. ?Children: yes, 2. ?Exercise: yes, Fish, Play music, Read. ?Marital status: . ?Occupation: retired. * Medications:?TakingLisinopri l 20 MG Tablet Orally hydroCHLOROthiazide 25 MG Tablet as directed Orally Once a dayFinasteride Loratadine 10 MG Tablet 1 tablet Orally Once a dayFamotidine 40 MG Tablet 1 tablet at bedtime Orally Once a dayCalcium & Magnesium Carbonates Echinacea Sujit Multivitamin for Men Vitamin E Vitamin C CoQ-10 Ginkgo Biloba Horse [place] Ashwagandha Turmeric Cinnamon Lipoflavonoid Saw Shawmut Vitamin A & D Centrum Silver Fish Oil Milk Thistle Taking Lisinopril 20 MG Tablet Orally Taking hydroCHLOROthiazide 25 MG Tablet as directed Orally Once a dayTaking Finasteride Taking Loratadine 10 MG Tablet 1 tablet Orally Once a dayTaking Famotidine 40 MG Tablet 1 tablet at bedtime Orally Once a dayTaking Calcium & Magnesium Carbonates Taking Echinacea Taking Sujit Multivitamin for Men Taking Vitamin E Taking Vitamin C Taking CoQ-10 Taking Ginkgo Biloba Taking Horse [place] Taking Ashwagandha Taking Turmeric Taking Cinnamon Taking Lipoflavonoid Taking Saw [place]mut Taking Vitamin A & D Taking Centrum Silver Taking Fish Oil Taking Milk Thistle Not-Taking/PRNColcrys 0.6 MG Tablet 1 tablet Orally Up to Four times a dayColchicine 0.6 MG Tablet 1 tablet Orally Amoxicillin-Pot Clavulanate 875 875-125 MG Tablet 1 tablet Orally every 12 hrsNaproxen 500 MG Tablet 1 tablet with food or milk as needed Orally every 12 hrsASO Ankle/Foot Stablizing AFO As directed Wear DailyOmeprazole 20 MG Capsule Delayed Release 1 capsule 30 minutes before morning meal Orally Once a dayCoconut Oil Not-Taking/PRN Colcrys 0.6 MG Tablet 1 tablet Orally Up to Four times a dayNot-Taking/PRN Colchicine 0.6 MG Tablet 1 tablet Orally Not-Taking/PRN Amoxicillin-Pot Clavulanate 875 875-125 MG Tablet 1 tablet Orally every 12 hrsNot-Taking/PRN Naproxen 500 MG Tablet 1 tablet with food or milk as needed Orally every 12 hrsNot-Taking/PRN ASO Ankle/Foot Stablizing AFO As directed Wear DailyNot-Taking/PRN Omeprazole 20 MG Capsule Delayed Release 1 capsule 30 minutes before morning meal Orally Once a dayNot-Taking/PRN Coconut Oil UnknownDigestive Enzymes Vitamin D Naproxen Medication List reviewed and reconciled with the patientUnknown Digestive Enzymes Unknown Vitamin D Unknown Naproxen Medication List reviewed and reconciled with the patient * Allergies:?N.K.D.A.yes[Aller gies Verified] Objective: * Vitals:?Ht: 5ft 10in, Wt:195 , BMI:27.98, Shoe size: 8.5, Ht-cm: 177.8 cm, Wt-k.45 kg. * Examination: ???Orthopedic: ?TAILOR'S BUNION:?Enlarged, painful, prominent, inflamed 5th Metatarsal Base , LEFT.?TENDONITIS:?Pain on palpation, inflammation, and fusiform swelling to , Peroneal Complex , LEFT.?ANKLE PAIN LOCATED:?LEFT , Anterior ankle , Lateral ankle , (+) swelling , pain with ankle joint ROM , Pain on palpation to , Peroneal tendons left?.?X-Rays - IMAGING REPORT: ?Clinical Indication(s):? Evaluate for Fracture, Evaluate Biomechanical Deformity.?Views:?2 views of Ankle, AP, LAT, , 2 views of Foot , LEFT.?Findings:?mild generalized decrease in bone density , asymmetrical Ankle joint space narrowing , anteriorly , posteriorly , medial gutter , lateral gutter , hypertrophy of 5th MT Base/Styloid process.?Fracture:?Negative fractures identified.?Vascular: ?DP PULSES:? 2/4, B/L.?PT PULSES:? 2/4, B/L.?CAPILLARY FILL TIME:?immediate, all digits, B/L.?SKIN TEMPERTURE GRADIENT OF THE LOWER EXTERMITIES:?normal, warm to cool, proximal to distal, B/L, B/L.?HAIR GROWTH/TEXTURE/ELASTICITY/TURGOR:?normal, B/L.?PIGMENTATION:?normal, B/L.?HELEN'S SIGN:?absent, B/L.?PALPABLE CORDS:?absent, B/L.?General Examination: ?GENERAL APPEARANCE:?Reveals a pleasant, alert, well nourished, well developed, well hydrated individual, who demonstrates proper attention to hygene/body habitus, and is in no acute distress.?ORIENTED:?person, place, and time.?Neurological: ?SENSORY:?Neurological exam reveals intact sensorium, pain sensation normal, vibration sensation intact, pinprick sensation is normal in the lower extremities, Pt denies, anesthesia, burning, paresthesia, tingling, B/L.?TINEL'S COMPRESSION:?Negative tarsal tunnel, stoney pedis, and medial calcaneal nerves.? Assessment: * Assessment: 1.?Arthralgia of left ankle - M25.572?2.?Osteoarthritis of left ankle or foot - M19.072, Acute problem, Complicated w/ Multiple Tx Options(4),Dx New problem, Prognosis Uncertain (4) 3.?Edema, lower extremity - R60.0, Acute problem, Uncomplicated (3), Rx Management (4)?4.?Peroneal tendinitis, left - M76.72?5.?Left foot pain - M79.672? Plan: * Treatment: 2.?Edema, lower extremity? Start Compression Stockings closed toe- knee high, 20-30mm Hg, 1 pair, wear, daily, 30 days, 2, Refills 2.?? 3.?Left foot pain?Imaging: X ray : Foot, left 2V?See Examination above * Procedure Codes:?46577 X-RAY EXAM OF LEFT ANKLE 2V, Modifiers: 26 , [id number] X- RAY EXAM OF LEFT FOOT 2V, Modifiers: 26 , LT * Preventive Medicine:? ??Counseling:?Discussion:?-14: Office or other outpatient visit for the evaluation and management of an established patient, which required a medically appropriate history and/or examination and MODERATE level of DECISION MAKING for: 1 OR MORE CHRONIC PROBLEM(S) THATS WORSENING, 2 STABLE CHRONIC PROBLEMS, A NEWLY DIAGNOSED PROBLEM WITH UNCERTAIN PROGNOSIS, AN ACUTE COMPLICATED INJURY WITH MULTIPLE TREATMENT OPTIONS, OR AN ACUTE PROBLEM WITH ACCOMPANYING SYSTEMIC SYMPTOMS, THAT POSE(S) A MODERATE RISK OF MORBIDITY. THIS CONDITION MAY ALSO INCLUDE RX DRUG MANAGEMENT, OR A DECISON FOR MINOR SURGERY. The visit on the day of the encounter encompassed interpreting the data and educating the patient as to the nature of their condition, treatment options available according to their individual PMH, meds, allergies, and overall health/living conditions, as well as any potential risks or complications that may occur from a failure to adhere to, and participate in, the recommended course of therapy. The discussion included a complete verbal, and/or written explanation of the examination results, any x-rays taken, the proposed diagnosis, and outline of the treatment plan. A schedule for future care needs was also explained. The patient verbalized an understanding of the instructions at this time and agreed to be an active participant in their treatment. If the patient should think of any questions or concerns after the visit, I have encouraged the patient to call the office.?Arthritis:?The patient was counseled on the various etiologies for their Arthritis including genetic, history of injury or trauma, abnormal foot biomechanics leading to excessive joint wear, and use/overuse. We discussed the various treatment options from no treatment, to topical analgesics such as Biofreeze gel, Aspercream, Voltaren gel, Lidoderm patches, CBD oils, THC creams, and Custom-compounded topical cream preparations to natural oral products such as Glucosamine Sulfate/Chondroitin/MSM/Collegen to analgesic Tylenol, to anti-inflammatory medications such as Ibuprofen/Naproxen, and the use of oral steroids if needed. Cardiac, Kidney, and GI issues were discussed RE: potential complications of oral anti-inflammatories. We discussed several other treatment options consisting of accom shoes, supportive innersoles, AFO bracing/support, cortisone injection therapy, and surgical resection of the arthritic joint(s) or fusion reconstruction if necessary. We discussed the advantages and disadvantages of conservative (vs) surgical treamtents including pain relief, improved function/activities of daily life, return to exercise to failure, expense, systemic complications, infection, [id number]-[id number], prolongued postop course. Patient questions re: the various treatment options available, their successes and potential failures, and relief cook effects were discussed and the answers were verbally confirmed understood, Recommended Topical analgesics including Biofreeze/Aspercream/Voltaren gel.?Edema:?I explained to the patient the possible etiologies for Edema, including genetic, surgery, infection, medications, heart disease, kidney disease, excess dietary salt, and various cancer treatments. We discussed the risks/benefits of the treatment options available including rest, elevation, OTC compression stockings, Rx compression stockings, Unna Boot application, diet modification to limit salt intake, and Rx segmental compression boots provided the absence of CHD in the patients medical history. The advantages and disadvantages of each option were discussed and the patients questions re: risk of infection(cellulitis), medications, diet, and the daily use of compression stockings(not to be worn at night), and consistency in these home treatment regimens for optimal success were answered to their verbally confirmed satisfaction. Given the risk for vessel clotting disease, the patient was instructed to go immediately to the ER of hospital should they experience any calf pain, SOB, or discomfort. Any changes to the patients medication regimen will be performed by the PCP or patients kidney/heart/cancer specialist. The patient has elected to receive compression stockings. Such were Rxed today with instructions for use.?Myositis/Tendonitis:?TENDONITIS: I explained to the patient the possible etiologies of their Tendonitis, including foot type/shoegear/activity level/exercise routine and the risks/benefits of the different treatment options for their pain including: No treatment at all, Rest, Ice, Oral Prednisone, NSAIDs(only if well tolerated after meals), New/supportive Shoegear, Strappings and Tapings, Stretching exercises, Deep Tissue Massage, Heel cups/cushions, Arch support/shoe inserts, Custom orthoses, Foot/Ankle AFO Bracing, Cast boot with crutches/cane/or walker for assisted ambulation, Topical analgesics including Aspercream/Voltaren gel, Physical Therapy, EPAT/ESWT, and Interfil injection therapy. Tendon surgical procedures including reefing and/or transfers were also detailed should either one become necessary through failure of conservative treatment. The advantages and disadvantages of each option were discussed and the patients questions re: shoegear, the difference between custom vs prefabricated inserts, activity level, PO vs Topical medications (and their respective potential complications/drug interactions/side effects), consistency in home treatment regimens for optimal success, as well as the potential benefits and possible complications of reconstructive surgery (includeing, but not limited to failure, prolongued/delayed healing, infection, weakness, persistant pain) were answered to their verbally confirmed satisfaction.? * Follow Up:?prn * Images: * Sign off status: Completed true * Provider:?Afia Kinney DPM Date:?2023 Generated for Gareth srinivasan/Paul/Mervin on:?12/11/2024 11:12 AM EST History and Physical Notes * HPI (History of Present Illness) Category Sub-Category Detail Notes Category Not es Ankle Pain Duration: two weeks Treatments: rest/alter normal da clara activity,naprosyn Course: worse Location: L eft ankles Onset/Cause: sudden, unknown, den ies trauma Aggravated by: any pressure, standi ng, walking Swelling Location: Both feet/leg Duration: several weeks Course: worse Examination Category Sub-Category Detail Notes Category Not es Neurological SENSORY: Neurological exa m reveals intact sensorium, pain sensation normal, vibration sensation intact, pinprick sensation is normal in the lower extremities, Pt denies, anesthesia, burning, paresthesia, tingling, B/L TINEL'S COMPRESSION: Negative tarsal lupe theresa, stoney pedis, and medial calcaneal nerves Orthopedic ANKLE PAIN LOCATED: LEFT , Anter ior ankle , Lateral ankle , (+) swelling , pain with ankle joint ROM , Pain on palpation to , Peroneal tendons left TAILOR'S BUNION: Enlarged, painful, p rominent, inflamed 5th Metatarsal Base , LEFT TENDONITIS: Pain on palpation, i nflammation, and fusiform swelling to , Peroneal Complex , LEFT General Examination GENERAL APPEARANCE: Reveals a pleasant, alert, well nourished, well developed, well hydrated individual, who demonstrates proper attention to hygene/body habitus, and is in no acute distress ORIENTED: person, place, and t everett Vascular DP PULSES (B): 2/4, B/L PT PULSES (B): 2/4, B/L CAPILLARY FILL TIME: immediate, all digi ts, B/L TEMPERTURE GRADIENT (C): normal, warm to cool, proximal to distal, B/L, B/L TROPHIC CONDITION-TEXTURE/ELASTICITY/TURGOR/HAIR GROWTH (B): normal, B/L HELEN'S SIGN: absent, B/L PALPABLE CORDS: absent, B/L PIGMENTATION: normal, B/L X-Rays - IMAGING REPORT Findings: mild gen eralized decrease in bone density , asymmetrical Ankle joint space narrowing , anteriorly , posteriorly , medial gutter , lateral gutter , hypertrophy of 5th MT Base/Styloid process Fracture: Negative fractures i dentified Views: 2 views of Ankle, AP , LAT, , 2 views of Foot , LEFT Clinical Indication(s): Evaluate for Fra cture, Evaluate Biomechanical Deformity
--- OUTSIDE RECORDS SUMMARY | 2024-12-11 11:12 | XMS_ITS ---
Author Organization [facility] Address [address] [place] [address] Care Team Providers Care Oiler Bander Name Role Phone Elmer Estes Primary Care Provider Unavailabl e Black, Afia Unavailable [phone] Oli Fontaine Unavailable Unavailable REASON FOR VISIT wants sooner appt Encounters Encounter Location Date Provider Diagnosis [facility] [address] [place] [address] 10/28/2023 Afia Black Plan Of Treatment No Information Progress Notes * Christine LYNNEOB: 9 (73 yo M)Acc No.[id number]:10/28/2023 Patient:?Olvin Lynne :1950???Age:73 Y???Sex:Male Address:[address], [place], [address] * true * Date:? Generated for Gareth srinivasan/Paul/eTransmitting on:?12/11/2024 11:11 AM EST
--- OUTSIDE RECORDS SUMMARY | 2024-12-11 11:12 | XMS_ITS | Patient Health Record ---
Author Organization [facility] Address [address] [facility] [place] [address] Care Team Providers Care Room Service Manager Name Role Phone Franklyn Elmer Primary Care Provider Unavailzaynab e Afia Kinney Unavailable [phone] Oli Fontaine Unavailable Unavailable Allergies No Known Allergies Reason For Referral No Information Medications Medication SIG (Take, Route, Frequency, Duration) Notes Start Date End Date Status hydroCHLOROthiazide 25 MG as directed Or ally Once a day Active Horse [place] Activ e Lisinopril 20 MG Orally Act mike Colcrys 0.6 MG 1 tablet Orally Up to Four times a day for 5 days 02/08/2023 Not-Taking Milk Thistle Active Lipoflavonoid Active Compression Stockings 20-30m m Hg 1 pair wear daily for 30 days Active Cinnamon Active Turmeric Active Ashwagandha Active Fish Oil Active Centrum Silver Activ e Vitamin A & D Active Saw [place] Active Amoxicillin-Pot Clavulanate 875 875-125 MG 1 tablet Orally every 12 hrs Not-Taking Colchicine 0.6 MG 1 tablet Orally 02/11/2023 Not-Taking Ginkgo Biloba Active CoQ-10 Active Calcium & Magnesium Carbonates Active Coconut Oil Not-Taki ng Famotidine 40 MG 1 tablet at bedtime Orally Once a day for 30 day(s) Active Omeprazole 20 MG 1 capsule 30 minutes before morning meal Orally Once a day for 30 day(s) Not-Taking Loratadine 10 MG 1 tablet Orally Once a day for 30 day(s) Active ASO Ankle/Foot Stablizing AFO As directe d Wear Daily for as needed 04/12/2020 Not-Taking Finasteride Active Naproxen 500 MG 1 tablet with food or milk as needed Orally every 12 hrs for 30 days 04/12/2020 Not-Taking Vitamin C Active Vitamin E Active Naproxen Unknown Sujit Multivitamin for Men Active Vitamin D Unknown Echinacea Active Digestive Enzymes Un known Social History Alcohol Screen Question Answer Notes Did you have a drink containing alcohol in the p ast year? No Points 0 Interpretation Negative Tobacco use other than smoking: Question Answer Notes Are you an other tobacco user? No Problems Problem Type SNOMED Code ICD Code Onset Dates Problem Status W/U Status Risk Notes Problem 582217971938492 Hallux valgus (acquired), right foot (M20.11) Active confirmed Problem Gout (20483943) Gout of right ankle (M10.9) Active confirmed Rx drug management (4) Problem Gout (87939395) Gout of left foot (M10.9) Active confirmed Rx drug management (4) Problem Gout (22571834) Gout of right foot (M10.9) Active confirmed Rx drug management (4) Problem Gout (41320482) Gout of left ankle (M10.9) Active confirmed Rx drug management (4) Problem 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 (751912329) 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) Active confirmed Rx drug management (4) Problem Chronic gouty arthritis (42436575) 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) Active confirmed Rx drug management (4) Problem Localized, primary osteoarthritis of the ankle and/or foot (751832842) 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) Active confirmed Problem Localized, primary osteoarthritis of the ankle and/or foot (676406926) Osteoarthritis of left ankle or foot (M19.072) Active confirmed Plan Of Treatment Pending Test Test Name Order Date *CBC With Differential/Platelet 02/09/20 X ray : Foot, right 3V 02/08/2023 Insurance Providers Payer Name Payer Address Payer Phone Subscriber Number Group Number Insured Name Patient Relationship to Insured Coverage Start Date Coverage End Date [employer] Medicare [id number] [address] [address] [place] [address] [id number] Henry, Olvin Self - patient is the insured Medical (General) History Medical History History ICD Code Chicken pox High blood pressure Measles Mumps Benign tumor (LT shoulder) Arthritis Diverticulosis Gout Lung disease Psoriasis Gastroesophageal reflux disease (GERD) Surgical History Surgery Date(Month/Year) shoulder surgery
== END 2024-12-11 10:22 | disposition home or self-care (01) ==
LOC: HO.RESP 10:21
PROVIDERS: PCP Physician Assistant Medical; Visit Provider Nurse Practitioner Family
DX: J44.9 Chronic obstructive pulmonary disease, unspecified (principal)
CPT/HCPCS: 94010; 94640; 94727; 94729

== ENCOUNTER → 2024-12-11 10:47 | Outpatient (BNV) | payer MEDICARE, SELFPAY | PROVIDERS: PCP Physician Assistant Medical; Visit Provider Internal Medicine Pulmonary Disease | DX: J44.9 Chronic obstructive pulmonary disease, unspecified (principal) | CPT/HCPCS: 94060; 94727; 94729 ==

== ENCOUNTER 2024-12-18 13:44 | Outpatient (AMB) | payer MEDICARE, SELFPAY ==
[2024-12-18 13:54] VITALS: BP 110/64; PULSE 78; O2SAT 99; BMI 26.8
--- NOTE | 2024-12-18 13:54 | A.OFFVIS_ITS ---
Vital Signs 12/18/24 13:54 Height 5 ft 10 in Weight 187 lb BMI 26.8 BP 110/64 Blood Pressure Location Rt brachial Position Sitting Pulse 78 Pulse Source Pulse Oximeter Pulse Oximetry (%) 99 Oxygen Delivery Method Room Air Intake Visit Reasons: asthma, copd/ PFT FU Escort Blind Required: No Bowling Ball Assembler: Bowling Ball Assembler offered & declined Accompanied by: Self / Same As Patient Allergies labetalol Allergy (Verified 12/18/24 14:02) prostate/ kidnesy problem Medication List - Last Reconciled 12/18/24 by Heidy Hull LPN aspirin (Adult Aspirin Regimen) 81 mg PO DAILY dicyclomine 20 mg PO TID PRN famotidine 40 mg PO BEDTIME finasteride 5 mg PO DAILY hydrochlorothiazide 25 mg PO DAILY lisinopril 10 mg PO DAILY loratadine 10 mg PO DAILY zolpidem 10 mg PO BEDTIME PRN HPI HPI asthma, copd/ PFT FU: Details: Olvin is a pleasant 74 year old male, never smoker, with underlying asthma, COPD, Osorio's esophagus, GERD, CKD, BPH, HTN, HLD, RA (controlled on supplements, previously on Humira under care of Dr. Dunlap), seizure disorder and cardiac arrhythmia s/p ablation. He was previously under the care of [facility] however due to insurance coverage had to switch providers. He reports being diagnosed with COPD 5 years ago based of prior PFT however experiences minimal symptoms. He continues to report occasional dyspnea on moderate exertion and intermittent dry cough otherwise denies symptoms. He continues to be quite active and states his ADL are not affected by respiratory symptoms. Today he presents to review PFT results. He denies any visits to urgent care or hosp italizations related to respiratory distress since the last visit. [facility] Social History Patient Tobacco Use Status: Never used Tobacco Review of Systems Const Denies chills, Denies excessive sweating, Denies fever(s), Denies headache(s) and Denies night sweats Eyes Denies dry eyes, Denies irritation and Denies itchy eyes ENT Reports Normal hearing present, Denies headache(s), Denies nasal congestion, Denies nasal discharge, Denies post nasal drip and Denies sore throat Card Denies chest pain, Denies chest pain at rest, Denies chest pain with activity, Denies claudication, Denies leg edema, Denies orthopnea and Denies paroxysmal nocturnal dyspnea Resp Denies chest congestion, Denies excessive phlegm production, Denies pain on inspiration, Denies pain with cough, Denies stridor and Denies wheezing Musc Denies myalgias Neuro Reports Normal hearing present and Denies headache(s) Endo Denies excessive sweating Karl/Lymph Denies lymphadenopathy Aller/Immun Denies itchy eyes, Denies seasonal rhinorrhea and Denies wheezing Physical Exam Vital Signs: Last Vital Signs Pulse 78 12/18/24 13:54 BP 110/64 12/18/24 13:54 Pulse Ox 99 12/18/24 13:54 Oxygen Delivery Method Room Air 12/18/24 13:54 BMI result Body Mass Index 26.8 Const General: cooperative, healthy appearing, comfortable, no acute distress, well developed and alert Orientation/consciousness: patient oriented x3 Limitations: no limitations HEENT Head: Yes normal to inspection, Yes normocephalic and Yes atraumatic Ears: hearing grossly normal bilaterally and external ears normal Eyes General: appearance normal, both eyes and all related structures Eyelids: Yes eyelids normal Sclerae: sclerae normal EOM: EOMs intact bilaterally Neck Neck: Yes normal visual inspection and Yes no lymphadenopathy Lymphatic: no lymphadenopathy noted Chest Chest palpation & inspection: normal inspection of the chest Resp Effort & Inspection: normal respiratory effort, able to speak in complete sentences, no audible wheezes, no cough, no stridor, not tachypneic, no tripod positioning and no use of accessory muscles Auscultation: clear to auscultation bilaterally Cardio Jugular venous distension: no JVD Rate: regular rate Rhythm: regular rhythm Skin Other: warm, dry General skin exam: no rashes or lesions noted Neuro General: patient oriented x3 Cranial nerves: Yes Normal hearing present Cognition (Neuro): normal cognition Gait exam (Neuro): Normal gait present Extrem General: Yes normal to inspection, Yes capillary refill normal, Yes no clubbing, cyanosis or edema and Yes no pedal edema Psych Appearance: grossly normal and well kempt Speech and movement: Normal speech and movement present and Clear speech present Affect: normal affect Attitude: cooperative Thought process: Normal thought process present Thought content: Normal thought content present Insight: Good insight present (Psych) Judgement: Good judgement present (Psych) Assessment & Plan Assessment & Plan (1) Asthma: Code(s): J45.909 - Unspecified asthma, uncomplicated Category: Medical (2) COPD (chronic obstructive pulmonary disease): Code(s): J44.9 - Chronic obstructive pulmonary disease, unspecified Category: Medical (3) Multiple pulmonary nodules: Code(s): R91.8 - Other nonspecific abnormal finding of lung field Category: Medical (4) Decreased diffusion capacity: Code(s): R94.2 - Abnormal results of pulmonary function studies Category: Medical Plan Reviewed PFT which revealed Combined moderate obstructive and restrictive ventilatory defects with no bronchodilator response. Decreased diffusion capacity suggests emphysema. Will send for chest CT to assess for any underlying parenchymal condition contributing to decreased diffusion capacity and restrictive defect found on PFT. Prior Chest CT 2021 revealed hyperinflation and bilateral small pulmonary nodules, size not described in report. All questions were answered and patient is in agreement of plan. Will follow up to review chest CT results and records or sooner if needed. Orders: Orders CT chest wo IV con Today R91.8 - Other nonspecific abnormal finding of lung field, R94.2 - Abnormal results of pulmonary function studies Coding Level of Care Code Est Pt Level 4 (19086) Diagnoses Asthma J45.909 COPD (chronic obstructive pulmonary disease) J44.9 Multiple pulmonary nodules R91.8 Decreased diffusion capacity R94.2
--- OUTSIDE RECORDS SUMMARY | 2024-12-18 15:51 | XMS_ITS ---
Author Organization [facility] Address [address] [facility] [place] [address] Care Team Providers Care Buncher Machine Name Role Phone Franklyn Simbalove Primary Care Provider Unavailabl e Nirmal Afia Unavailable [phone] Oli Fontaine Unavailable Unavailable Allergies No Known [...] e Vitamin A & D Active [place] Active Ginkgo Biloba Active Horse [place] Activ e Cinnamon Active Turmeric Active Ashwagandha [...] primary osteoarthritis of the ankle and/or foot (322342866) 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) Active confirmed Problem Localized, primary osteoarthritis of the ankle and/or foot (087061635) Osteoarthritis of left ankle or foot (M19.072) Active confirmed Vital Signs Height 5ft 10in in 10/31/2023 Weight 195 lbs 10/31/2023 BMI 27.98 kg/m2 10/31/2023 Encounters Encounter Location Date Provider Diagnosis [facility] [address] [place] [address] 10/31/2023 Afia Black Arthralgia of left ankle [...] * Christine LYNNEOB: 9 (73 yo M)Acc No.[id number]:10/31/2023 Progress Note Patient:?Olvin Lynne Provider:?Afia Kinney DPM :1950???Age:73 Y???Sex:Male Constantino e:10/31/2023 Address:[address] [place] [address] [address] [facility] [place] [id number] Pcp:Elmer Estes Subjective: * Chief Complaints: * [...] E Vitamin C CoQ-10 Ginkgo Biloba [place] Ashwagandha Turmeric Cinnamon Lipoflavonoid [place] Vitamin A & D Centrum Silver Fish [...] Taking CoQ-10 Taking Ginkgo Biloba Taking [place] Taking Ashwagandha Taking Turmeric Taking Cinnamon Taking Lipoflavonoid Taking [place] Taking Vitamin A & D Taking Centrum [...] Foot, left 2V?See Examination above * Procedure Codes:?81240 X-RAY EXAM OF LEFT ANKLE 2V, Modifiers: 26 , NR42289 X- RAY EXAM OF LEFT FOOT 2V, [...] exercise to failure, expense, systemic complications, infection, [id number], prolongued postop course. Patient questions re: the various treatment options available, their successes and potential failures, and director of convention services effects were discussed and the answers were [...] * Provider:?Afia Kinney DPM Date:?2023 Generated for Gaerth srinivasan/Paul/Mervin on:?12/18/2024 03:51 PM EST History and Physical Notes * HPI [...]
--- OUTSIDE RECORDS SUMMARY | 2024-12-18 15:51 | XMS_ITS | Patient Health Record ---
Author Organization [facility] Address [address] [facility] [place] [address] Care Team Providers Care Chemical Unit Operator Name Role Phone Franklyn Elmer Primary Care Provider Unavailzaynab e Afia Kinney Unavailable [phone] Oli Fontaine Unavailable Unavailable Allergies No Known Allergies Reason For Referral No Information Medications Medication SIG (Take, Route, Frequency, Duration) Notes Start Date End Date Status hydroCHLOROthiazide 25 MG as directed Or ally Once a day Active Horse [place] Activ e Lisinopril 20 MG Orally Act mike Colcrys 0.6 MG 1 tablet Orally Up to Four times a day for 5 days 02/08/2023 Not-Taking Milk Thistle Active Lipoflavonoid Active Compression Stockings 20-30m m Hg 1 pair wear daily for 30 days Active Cinnamon Active Turmeric Active Ashwagandha Active Fish Oil Active Centrum Silver Activ e Vitamin A & D Active [place] Active Amoxicillin-Pot Clavulanate 875 875-125 MG 1 [...] Problem Status W/U Status Risk Notes Problem [id number] Hallux valgus (acquired), right foot (M20.11) Active confirmed Problem Gout (57676179) Gout of right ankle (M10.9) Active confirmed Rx drug management (4) Problem Gout (59322343) Gout of left foot (M10.9) Active confirmed Rx drug management (4) Problem Gout (48552671) Gout of right foot (M10.9) Active confirmed Rx drug management (4) Problem Gout (44020864) Gout of left ankle (M10.9) Active confirmed Rx drug management (4) Problem 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 (933020669) 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) Active confirmed Rx drug management (4) Problem Chronic gouty arthritis (39852082) 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) Active confirmed Rx drug management (4) Problem Localized, primary osteoarthritis of the ankle and/or foot (609805190) 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) Active confirmed Problem Localized, primary osteoarthritis of the ankle and/or foot (775658334) Osteoarthritis of left ankle or foot (M19.072) Active confirmed Plan Of Treatment Pending Test Test Name Order Date *CBC With Differential/Platelet 02/09/20 X ray : Foot, right 3V 02/08/2023 Insurance Providers Payer Name Payer Address Payer Phone Subscriber Number Group Number Insured Name Patient Relationship to Insured Coverage Start Date Coverage End Date [employer] Medicare [id number] [address] [address] [place] [address] [id number] Henry, Olvin Self - patient is the insured Medical (General) History Medical History History ICD Code Chicken pox High blood pressure Measles Mumps Benign tumor (LT shoulder) Arthritis Diverticulosis Gout Lung disease Psoriasis Gastroesophageal reflux disease (GERD) Surgical History Surgery Date(Month/Year) shoulder surgery
--- OUTSIDE RECORDS SUMMARY | 2024-12-18 15:51 | XMS_ITS | Clinical Summary ---
Author Organization [address] [facility] Address [address] [place] [address] Phone Care Team Providers Care Wallpaper Inspector Name Role Phone Elmer Estes MD Primary Care Provider [phone] Allergies Active Allergy Reactions Criticality Noted Date [...] ORAL Take by mouth. 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) Rheumatoid arthritis ([facility]) 07/25/2015 D X:Rheumatoid arthritis (HCC) Pulmonary nodules [...] dyskinesia 07/21/2014 DX:Esophag eal dyskinesia Emphysema lung ([facility]) 07/27/2015 DX:Emph ysema lung ([facility]) Elevated PSA 06/19/2021 DX:Elevated PSA Dysphagia 02/25/2018 DX:Dysphagia Duodenal erosion 03/31/2018 DX:Duodenal ero austyn Atypical migraine 06/19/2021 DX:Atypical mi graine Allergic rhinitis 05/23/2015 DX:Allergic rh initis Achilles bursitis 06/19/2021 DX:Achilles bu rsitis ED (erectile dysfunction) 05/28/2017 DX:ED (erectile dysfunction) Decreased libido 12/21/2013 DX:Decreased li marisa Constipation 06/19/2021 DX:Constipation Chronic obstructive pulmonar y disease ([facility]/HCC) 01/03/2018 DX:Chronic obstructive pulmo nary disease (HCC) Benign prostatic hyperplasia without urinary obstruction 12/27/2014 DX:Benign prostatic hyperpla shane without urinary obstruction 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/19/2014 DX: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 Seizure disorder ([facility]) 06/19/2021 DX:Se izure disorder ([facility]) Gastroesophageal reflux dise ase without esophagitis 06/19/2021 DX:Gastroesophageal reflux d isease without esophagitis; COMMENT: Hx erosive esophagitis 03/31/2018 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 06/19/2021 DX:Therapy failure due to antibiotic resistance Loss of consciousness ([facility]) 06/19/2021 DX:Loss of consciousness ([facility]) 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
--- OUTSIDE RECORDS SUMMARY | 2024-12-18 15:51 | XMS_ITS ---
Author Organization [facility] Address [address] [place] [address] Care Team Providers Care Medical Voucher Clerk Name Role Phone Elmer Estes Primary Care Provider Unavailabl e Black, Afia Unavailable [phone] Oli Fontaine Unavailable Unavailable REASON FOR VISIT wants sooner appt Encounters Encounter Location Date Provider Diagnosis [facility] [address] [place] [address] 10/28/2023 Afia Black Plan Of Treatment No Information Progress Notes * Christine LYNNEOB: 9 (73 yo M)Acc No.[id number]:10/28/2023 Patient:?Olvin Lynne :1950???Age:73 Y???Sex:Male Address:[address], [place], [address] * true * Date:? Generated for Gareth srinivasan/Paul/eTransmitting on:?12/18/2024 03:50 PM EST
--- OUTSIDE RECORDS SUMMARY | 2024-12-18 15:51 | XMS_ITS | Data Portability ---
Author Organization [place] - [facility], Allergy Address [address] [address] Care Team Providers Care Highway Maintenance Worker Name Role Phone NATHEN MAYFIELD Primary Care Provider [phone] Assessment Encounter Date Assessment Date Assessment LastModified [...] modifications also discussed. Follow-up here as needed. [email or web address] Not available 09/29/2024 12:08:18 Plan of Treatment [...] mcg/actua tion nasal spray,negrito pension 2023 024 [facility]acy #[id number], [address] [place] [address], [place], [address], 07/31/2024 12:01:01 Patient TargetsNo targets recorded. Patient InstructionsNo instructions recorded. Reason for Referral None Reported. Results Created Date Observation Date Name Description Value Unit Range Abnormal Flag Note LastModifiedBy Organization Detail LastModifiedTime 07/31/20 24 audio gram No observ ation record ed. [email or web address] Not Available 08/2024 14:38:20 Result Notes None recorded. Problems Name Problem SNOMED Code Status Onset Date Resolution Date Notes Provider Name and Address Organization Details Recorded Time Acute sinusiti s 11210464 Completed 201705/22/2024 Other acute sinusiti s; Note: Date Diagnose d: 12/20/2017 1:37 PM (J01.80) Not Available [facility] 4 03:19:27 Sensorin eural hearing loss of bilatera l ears 878872380 Active 2018 Sensorin eural hearing loss, bilatera l; Note: Date Diagnose d: 9 5:11 PM (H90.3) Not Available [facility] 4 03:19:26 Bilatera l disorder of Eustachi an tubes 66335525800 75772 Active 2018 Other specifie d disorder s of Eustachi an tube, bilatera l; Note: Date Diagnose d: 9 10:24 AM (H69.83) Not Available [facility] 4 03:19:26 Headache 81842522 Active 2017 Facial pain NOS; Note: Date Diagnose d: 12/20/2017 1:37 PM (R51) Not Available [facility] 4 03:19:26 Tinnitus of right ear 14587391187 08 Active 2023 CARISSA COVARRUBIAS MA, CCC-A [address] [facility],[place] [facility], [place], [address] , [facility] - [facility] [place] 4 11:15:02 Impacted cerumen of bilatera l ears 65678981391 70777 Active 2023 PRABHJOT BANKS PA-C [address] [facility],[place] [facility], [place], [address] , [facility] - [facility] [place] 4 12:00:04 Posterio r rhinorrh ea 07733828 Active 2023 PRABHJOT BANKS PA-C [address] [facility],[place] [facility], [place], [address] , [facility] - [facility] [place] 4 12:00:32 Chronic hoarsene ss 08436128567 05 Active 2023 PRABHJOT BANKS PA-C [address] [facility],[place] [facility], [place], [address] , [facility] - [facility] 4 12:08:31 Dysphagi a 05595902 Active 2023 PRABHJOT BANKS PA-C [address] [facility],[place] [facility], [place], [address] , [facility] - [facility] [place] 4 12:08:34 Gastroes ophageal reflux disease without esophagi tis 917485603 Active 2023 PRABHJOT BANKS PA-C [address] [facility],[place] [facility], [place], [address] , [facility] - [facility] [place] 4 12:08:37 Problem Notes None recorded. Procedures Surgical History Date Name Laterality Status Provider Name and Address Organization Details Recorded Time 4 FOL_Reflux_JMS completed PRABHJOT BANKS PA-C [address], [place], [address], [facility] - [facility] [place] 09/29/2024 12:07:30 4 Cerumen removal without microscope bilat completed PRABHJOT BANKS PA-C 100 [facility] [address], [place], [address], [facility] - [facility] 07/31/2024 11:59:21 Air & Speech Audio with Tymps (94231, 38793 & 46234) completed CARISSA COVARRUBIAS MA, CCC-A 100 [facility] [address], [place], [address], [facility] - [facility] 07/31/2024 11:14:33 Imaging Results Imaging Date Name Status LastModified by Organiz ation Details LastModified Time 07/31/2024 audiogram completed [facility] Information not available 07/31/2024 14:38:20 Procedure Notes [...] 5 DROPS INTO BOTH EARS TWICE DAILY [id number]. TILD HEAD SO EAR TO BE TREATED [...] dose pack 01/28 completed Medicati on ID: [id number] D uration Value: 6 Brand Name: methylhiwot [...] mg tablet 01/28 completed Medicati on ID: [id number] D uration Value: 7 Brand Name: azithrom ycin Sen d Method: E-Prescr ibed Sub s Allowed: subs TATIANA Speclalit al Instruct ion: TAKE 1 TABLET DAILY FOR 7 DAYS Med icationG enericNa me: azithrom ycin Not Available Not Available Not Available Gavilyte- C 240 gram-22.7 2 gram-6.72 gram-5.84 gram oral solution 01/28 completed Medicati on ID: [id number] D uration Value: 1 Brand Name: GaviLyte -C Send Method: E-Prescr ibed Sub s Allowed: subs OK Speci al Instruct ion: USE DIRECTED Medicat ionGener icName: GaviLyte -Paramjit Not Available Not Available Not Available Vitals Date Recorded Body height Body mass index (BMI) Body weight Provider Name and Address Organization Details Last Updated DateTime 07/31/2024 177.8 cm 28 kg/m2 73573.51 g Leann Cms [facility] 07/31/2024 11:20:56 Date Recorded Body height Body mass index (BMI) Body weight Provider Name and Address Organization Details Last Updated DateTime 09/29/2024 177.8 cm 28 kg/m2 98606.51 g Marcelina Canaleschner [facility] 09/29/2024 10:56:38 Social History None recorded. Functional Status None recorded. Mental Status None recorded. Family History Nothing Reported. Medical History No medical history recorded. Past Encounters Encounter ID Performer Location Encounter Start Date Encounter Closed Date Diagnosis/Indication Diagnosis SNOMED-CT Code Diagnosis ICD10 Code Diagnosis Note [id number] TAWANA UGALDE MD [facility] [address] [address] 07/31/2024 10:32:13 07/31/2024 12:14:54 Sensorineural hearing loss of bilateral ears 174310124 H90.3 Audiologic al evaluation results: Right ear: [...] amplificat ion Tinnitus of right ear 48 00622711 108 H93.11 Impacted c erumen of bilateral ears 3034099277 651527 H61.23 Posterior rhinorrhea 758 66326 R09.82 [id number] DENNY NORMAN MD [facility] [address] [address] 09/29/2024 10:40:12 09/29/2024 11:34:30 Posterior rhinorrhea 42646408 R09.82 Chronic hoarseness 02036 81319 105 R49.0 Dysphagia 59473545 R13.1 0 Gastroesop hageal reflux disease without esophagitis 916307662 K21.9 Health Concerns Section Related Observation LastModified by Organization Detai ls LastModified Time None Recorded Concern Status LastModified by Organization Details LastModified Time None Recorded Advance Directives Directive None Recorded Payers Encounter Date Sequence Insurance Name Policy Number Policy Blunt Covered Member ID Blunt Member ID Guarantor Name 07/31/2024 1 [employer] (MEDICARE REPLACEMENT PPO) [id number] Olvin Figueroa [id number] Olvin Figueroa 09/29/2024 1 [employer] (MEDICARE REPLACEMENT PPO) [id number] Olvin Figueroa [id number] Olvin Figueroa Notes Date Note Type Note [...] red flag symptoms. TAWANA UGALDE MD 100 [facility],[address], [address], [place] - [facility] 07/31/2024 16:32:47 09/29/2024 text/html 74-year-old male presents [...] Takes famotidine daily. DENNY NORMAN MD [address] [facility],[place] [address], [place], [address], [facility] - [facility] 09/30/2024 13:19:50
== END 2024-12-18 14:28 | disposition home or self-care (01) ==
PROVIDERS: PCP Physician Assistant Medical; Visit Provider Nurse Practitioner Family
DX: J45.909 Unspecified asthma, uncomplicated (principal); J44.9 Chronic obstructive pulmonary disease, unspecified; R91.8 Other nonspecific abnormal finding of lung field; R94.2 Abnormal results of pulmonary function studies
CPT/HCPCS: 99214

== ENCOUNTER → 2024-12-18 13:44 | Outpatient (BNVA) | payer MEDICARE, SELFPAY | PROVIDERS: PCP Physician Assistant Medical; Visit Provider Nurse Practitioner Family | DX: J44.9 Chronic obstructive pulmonary disease, unspecified (principal); J45.909 Unspecified asthma, uncomplicated; R91.8 Other nonspecific abnormal finding of lung field; R94.2 Abnormal results of pulmonary function studies | CPT/HCPCS: 99212 ==

== ENCOUNTER 2025-02-15 10:24 | Outpatient (REF) | payer MEDICARE, SELFPAY ==
--- NOTE | ~2025-02-15 | CT_ITS ---
CLINICAL HISTORY: R91.8 - Other nonspecific abnormal finding of lung field CT chest without contrast Comparison: None Findings: No mediastinal mass or lymphadenopathy. No cardiomegaly. Moderate calcified coronary artery disease. Mild calcification of the aortic valve. Evaluation of the vasculature is limited without intravenous contrast, however the aortic root appears dilated, measuring up to 4.0 cm. Otherwise normal size thoracic aorta. Mild calcified atherosclerotic disease. No acute pulmonary parenchymal or airway pathology. Calcified granuloma. No pneumothorax or pleural effusion. No acute osseous or soft tissue abnormality. No acute pathology in the imaged portion of the upper abdomen. Cholelithiasis. No gallbladder wall thickening or pericholecystic fluid. 1.4 cm low attenuating lesion in the right lobe of the liver. Subcentimeter low attenuating lesion which is too small to characterize in the left lobe of the liver Impression: No acute findings. Indeterminate 1.4 cm lesion in the right lobe of the liver could be a hemangioma. This can be further characterized with ultrasound. This document has been electronically signed by: Martina Rosenberg MD on 02/15/2025 21:20:46
--- OUTSIDE RECORDS SUMMARY | 2025-02-15 12:08 | XMS_ITS | Clinical Summary ---
Author Organization [address] [facility] Address [address] [place] [address] Phone Care Team Providers Care Opening Machine Cleaner Name Role Phone Elmer Estes MD Primary Care Provider Allergies Active Allergy Reactions Criticality Noted Date Comments Labetalol Unknown 05/07/2022 Causes prostate to enlarge Medications lisinopriL (PRINIVIL,ZEST RIL) 20 mg tablet Take 1 tablet (20 mg total) by mouth 1 (one) time each day. 4 Active albuterol HFA (PROAIR HFA ; PROVENTIL HFA ; VENTOLIN HFA) 90 mcg/actuation inhaler Inhale 2 puffs by mouth every 4 (four) hours if needed. Active famotidine (PEPCID) 40 mg tablet Active finasteride (PROSCAR) 5 mg tablet Take 1 tablet (5 mg total) by mouth 1 (one) time each day. 4 Active tacrolimus (PROTOPIC) 0.1 % ointment Apply 1 each topically. 4 Active multivitamin (MULTIPLE VITAMINS ORAL) Take by [...] mg tablet 1 tablet (1,000 mg total). 0 Active calcium carbonate-vit D3-min 600 mg calcium- 400 unit tablet 1 (one) time each day. 0 Active cholecalcifero l (VITAMIN D-3) 10 mcg (400 unit) tablet 1 tablet (400 Units total). 0 Active echinacea 500 mg capsule 500 mg. 0 Active horse chestnut 300 mg capsule 300 mg. 0 Active milk thistle seed extract 175 mg capsule 175 mg. 0 Active VITAMIN E ACETATE ORAL 400 Units. 0 Active zolpidem (AMBIEN) 10 mg tablet 1 tablet (10 mg total). 5 Active ALOE VERA ORAL Take by mouth. Active Ca carb-D3-mag mz-oqs-axtd-Zn 600 mg-20 mcg- 40 mg-0.25 mg tablet,chewabl e Chew. Active omega-3 acid ethyl esters (LOVAZA) 1 gram capsule Take by mouth. Active coenzyme Q-10 100 mg capsule Take by mouth. Active hydroCHLOROthi azide (HYDRODIURIL) 25 mg tablet Take 1 tablet (25 mg total) by mouth 1 (one) time each day. 90 each 4 Active dicyclomine (BENTYL) 10 mg capsuleIndicat ions:Abdominal discomfort Take 1 capsule (10 mg total) by mouth 4 (four) times a day if needed (abdominal pain or cramps). 60 capsule 4 Active loratadine (CLARITIN) 10 mg tablet TAKE 1 TABLET BY MOUTH EVERY DAY 90 tablet 1 5 Active loratadine (CLARITIN) 10 mg tablet Take 1 tablet (10 mg total) by mouth 1 (one) time each day. 4 01/27/20 25 Discontinued Active Problems Problem Noted Date Diagnosed Date [...] skin 06/19/2021 Elevated PSA 06/19/2021 Seizure disorder ([facility] V24, [facility] V28) 05/23 Atypical migraine 06/19/2021 Rheumatoid myopathy with rhe umatoid arthritis ([facility] V24, [facility] V28) 06/19/2021 Achilles bursitis 06/19/2021 Heberden's node 06/19/2021 Low back pain 06/19/2021 Localized swelling of right foot 06/19/2021 Meniere's disease 06/19/2021 Overview (07/27/2024): R ear. Psoriasis 06/19/2021 Overview (07/27/2024): Face and thighs. Lung field abnormal 06/19/2021 Strain of muscle, fascia and tendon of abdomen, initial encounter 06/19/2021 Mixed dysphasia 06/19/2021 Insomnia 06/19/2021 Loss of consciousness ([facility] V24, [facility] V28) 06/19/2021 Duodenal erosion 03/31/2018 Dysphagia 02/25/2018 Lipoma of colon 01/13/2018 Chronic obstructive pulmonar y disease ([facility] V24, [facility] V28) 01/03/2018 ED (erectile dysfunction) 05/28/2017 Essential hypertension 07/27/2015 Hyperlipidemia 07/27/2015 Elevated fasting blood sugar 07/27/2015 Achilles tendinitis 07/27/2015 Overview (07/27/2024): Bilateral lower extremities 06/26/2016. Emphysema lung ([facility] V24, [facility] V28) 2014 Rheumatoid arthritis ([facility] V24, [facility] V28) 07/25/2015 Allergic rhinitis 05/23/2015 Sleep disorder 01/18/2015 [...] Surgical History Surgery Date Site/Laterality Comments COLONOSCOPY 2017 PROCEDURE: HISTORICAL COLONOSCOPY; COMMENT: Dr. Ben Nieves OTHER SURGICAL HISTORY 04/06/2016 PROCEDURE: SKIN EXCISION; COMMENT: Soft tissue tumor, back, subcutaneous 3cm or greater. Medical History Medical History Date Comments Hypertension DX:Hypertension Enlarged prostate DX:Enlarged pr ostate Acid reflux DX:Acid reflux Vitamin D deficiency 12/27/2014 DX:Vitamin D deficiency Tinnitus 06/11/2012 DX:Tinnitus Temporomandibular joint disorder 02/02/2013 DX:Temporomandibular joint disorder Syncope 06/19/2021 DX:Syncope Supraventricular tachycardia ([facility] V24) 06/19/2021 DX:Supraventricular tachycar miri (HCC) Rheumatoid myopathy with rhe umatoid arthritis ([facility] V24, [facility] V28) 06/19/2021 DX:Rheumatoid carmen sammy with rheumatoid arthritis (HCC) Rheumatoid arthritis ([facility]/ [facility] V24, [facility] V28) 07/25/2015 DX:Rheumatoid arthritis ([facility] ) Pulmonary nodules 07/19/2014 DX:Pulmonary n odules Psoriasis [...] dyskinesia 07/21/2014 DX:Esophag eal dyskinesia Emphysema lung ([facility] V24, [facility] V28) 07/27/2015 DX:Emphysema lung (HCC) Elevated PSA 06/19/2021 DX:Elevated PSA Dysphagia 02/25/2018 DX:Dysphagia Duodenal erosion 03/31/2018 DX:Duodenal ero austyn Atypical migraine 06/19/2021 DX:Atypical mi graine Allergic rhinitis 05/23/2015 DX:Allergic rh initis Achilles bursitis 06/19/2021 DX:Achilles bu rsitis ED (erectile dysfunction) 05/28/2017 DX:ED (erectile dysfunction) Decreased libido 12/21/2013 DX:Decreased li marisa Constipation 06/19/2021 DX:Constipation Chronic obstructive pulmonar y disease ([facility] V24, [facility] V28) 01/03/2018 DX:Chronic obstructive pulm onary disease (HCC) Benign prostatic hyperplasia without urinary obstruction 12/27/2014 DX:Benign prostatic hyperpla shane without urinary obstruction 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/19/2014 DX: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 Seizure disorder ([facility] V2 4, [facility] V28) 06/19/2021 DX:Seizure disorder (HCC) Gastroesophageal reflux dise ase without esophagitis 06/19/2021 DX:Gastroesophageal reflux d isease without esophagitis; COMMENT: Hx erosive esophagitis 03/31/2018 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 06/19/2021 DX:Therapy failure due to antibiotic resistance Loss of consciousness ([facility] V24, [facility] V28) 06/19/2021 DX:Loss of consciousness (HC C) 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 [...] (short-segment Osorio' s esophagus) 06/19/2021 DX:SSBE (short-segment Homer tt's esophagus) Psoriasis DX:Psoriasis Family History Medical [...] 1:15 PM EDT Office Visit Nephrology - [place] [address] [place] [address] Sumit Wood MD [address] [address] Health Maintenance Due Date Last Done Comments Colorectal Cancer Screening: Colonoscopy 09/29/2022 Depression Screening 09/29/2022 Falls Risk Assessment 09/29/2022 Hepatitis C Screening 09/29/2022 Medicare Annual Wellness Visit 09/29/2022 Social Influencers of Health Screening 09/29/2022 COVID-19 Vaccine ( season) 2024 10/04/2023, 04/13/2022, 08/10/2021, Additional history exists Hypertension/CHF/CAD Annual BMP Blood Test 02/19/2025 02/20/2024 Influenza Vaccine (Season Ended) 2025 07/12/2023, 07/26/2022, 07/26/2021, Additional history exists DTaP,Tdap,and Td Vaccines (2 - Td or Tdap) 10/31/2025 10/31/2015 Cholesterol Screening (Lipid Panel) 12/18/2028 12/18/2023 Pneumococcal Vaccine: 50+ Years Completed 08/29/2023 RSV Immunization Adult Patients Completed 09/17/2023 Zoster Vaccines Completed 01/29/2024, 11/2023, [...] age to complete this topic Meningococcal B Vaccine Aged Out No l onger eligible based on patient's age to complete this topic RSV Immunization Patients Under 20 months Aged Out No longer eligible based on patient's age to complete this topic Varicella Vaccines Aged Out No longer eligible based on patient's age to complete this topic Insurance [employer] MEDICARE ADVANTAGE Care Teams Opening Machine Cleaner Relationship Specialty Start Date End Date Elmer Estes MD [address] [place] [address] PCP - General 09/04/23
== END 2025-02-15 10:25 | disposition home or self-care (01) ==
LOC: HO.CT 10:24
PROVIDERS: PCP Physician Assistant Medical; Visit Provider Nurse Practitioner Family
DX: R91.8 Other nonspecific abnormal finding of lung field (principal); R94.2 Abnormal results of pulmonary function studies
CPT/HCPCS: 71250

== ENCOUNTER → 2025-02-15 10:25 | Outpatient (BNV) | payer MEDICARE, SELFPAY | PROVIDERS: PCP Physician Assistant Medical; Visit Provider Radiology Diagnostic Radiology | DX: K76.89 Other specified diseases of liver (principal) | CPT/HCPCS: 71250 ==

== ENCOUNTER 2025-02-24 09:54 | Outpatient (AMB) | payer MEDICARE, SELFPAY ==
[2025-02-24 10:00] VITALS: BP 98/64; PULSE 65; O2SAT 99; BMI 26.3
--- NOTE | 2025-02-24 10:00 | MHC.OFFVIS ---
Vital Signs 02/24/25 10:00 Height 5 ft 10 in Weight 183 lb 2 oz BMI 26.3 BP 98/64 Blood Pressure Location Rt brachial Position Sitting Pulse 65 Pulse Source Pulse Oximeter Pulse Oximetry (%) 99 Oxygen Delivery Method Room Air Intake Visit Reasons: Asthma/CT Follow Up Allergies labetalol Allergy (Verified 02/24/25 10:03) prostate/ kidnesy problem HPI HPI Asthma/CT Follow Up: Details: Olvin is a pleasant 74 year old male, never smoker, with underlying asthma, moderate COPD, Osorio's esophagus, GERD, CKD, BPH, HTN, HLD, RA (controlled on supplements, previously on Humira under care of Dr. Dunlap), seizure disorder and cardiac arrhythmia s/p ablation. PFT revealed combined moderate obstructive and restrictive ventilatory defects with no bronchodilator response. Decreased diffusion capacity suggests emphysema and was sent for chest CT to assess for underlying parenchymal condition. Today he presents to review results. He reports dyspnea on exertion occurs rarely, reports dry cough which he attributes to post nasal drip, controlled with OTC antihistamines.He denies any visits to urgent care or hospitalizations related to respiratory distress since the last visit. Of note, he does report weight loss of 20lbs over the last year, although has made diet changes, unintended amount of weight loss. Advised to disucss with PCP. [facility] Social History Patient Tobacco Use Status: Never used Tobacco Review of Systems Const Denies chills, Denies excessive sweating, Denies fever(s), Denies headache(s) and Denies night sweats Eyes Denies dry eyes, Denies irritation and Denies itchy eyes ENT Reports Normal hearing present, Denies headache(s), Denies nasal congestion, Denies nasal discharge and Denies sore throat Card Denies chest pain, Denies chest pain at rest, Denies chest pain with activity, Denies claudication, Denies leg edema, Reports dyspnea on exertion, Denies orthopnea and Denies paroxysmal nocturnal dyspnea Resp Denies chest congestion, Reports cough, Denies excessive phlegm production, Denies pain on inspiration, Denies pain with cough, Reports dyspnea on exertion, Denies stridor and Denies wheezing Musc Denies myalgias Neuro Reports Normal hearing present and Denies headache(s) Endo Denies excessive sweating Karl/Lymph Denies lymphadenopathy Aller/Immun Denies itchy eyes, Reports seasonal rhinorrhea and Denies wheezing Physical Exam Vital Signs: Last Vital Signs Pulse 65 02/24/25 10:00 BP 98/64 02/24/25 10:00 Pulse Ox 99 02/24/25 10:00 Oxygen Delivery Method Room Air 02/24/25 10:00 BMI result Body Mass Index 26.3 Const General: cooperative, healthy appearing, comfortable, no acute distress, well developed and alert Orientation/consciousness: patient oriented x3 Limitations: no limitations HEENT Head: Yes normal to inspection, Yes normocephalic and Yes atraumatic Ears: hearing grossly normal bilaterally and external ears normal Eyes General: appearance normal, both eyes and all related structures Eyelids: Yes eyelids normal Sclerae: sclerae normal EOM: EOMs intact bilaterally Neck Neck: Yes normal visual inspection and Yes no lymphadenopathy Lymphatic: no lymphadenopathy noted Chest Chest palpation & inspection: normal inspection of the chest Resp Effort & Inspection: normal respiratory effort, able to speak in complete sentences, no audible wheezes, no cough, no stridor, not tachypneic, no tripod positioning and no use of accessory muscles Auscultation: clear to auscultation bilaterally Cardio Jugular venous distension: no JVD Rate: regular rate Rhythm: regular rhythm Skin Other: warm, dry General skin exam: no rashes or lesions noted Neuro General: patient oriented x3 Cranial nerves: Yes Normal hearing present Cognition (Neuro): normal cognition Gait exam (Neuro): Normal gait present Extrem General: Yes normal to inspection, Yes capillary refill normal, Yes no clubbing, cyanosis or edema and Yes no pedal edema Psych Appearance: grossly normal and well kempt Speech and movement: Normal speech and movement present and Clear speech present Affect: normal affect Attitude: cooperative Thought process: Normal thought process present Thought content: Normal thought content present Insight: Good insight present (Psych) Judgement: Good judgement present (Psych) Results Reviewed Results Reviewed: [address] [address] [address] Scan Report Signed Patient: Olvin Figueroa MR#: [id number] : 1950 Acct:[id number] Age/Sex: 74 / M ADM Date: 02/15/25 Loc: HO.CT Attending Dr: Nevin Jain NP Ordering Physician: Nevin Jain NP Date of Service: 02/15/25 Procedure(s): CT chest wo IV con Accession Number(s): [id number] cc: Hayden Grossman; Nevin Jain NP~ Report Number: [id number]: Total DLP = 144.00 mGy-cm CLINICAL HISTORY: R91.8 - Other nonspecific abnormal finding of lung field CT chest without contrast Comparison: None Findings: No mediastinal mass or lymphadenopathy. No cardiomegaly. Moderate calcified coronary artery disease. Mild calcification of the aortic valve. Evaluation of the vasculature is limited without intravenous contrast, however the aortic root appears dilated, measuring up to 4.0 cm. Otherwise normal size thoracic aorta. Mild calcified atherosclerotic disease. No acute pulmonary parenchymal or airway pathology. Calcified granuloma. No pneumothorax or pleural effusion. No acute osseous or soft tissue abnormality. No acute pathology in the imaged portion of the upper abdomen. Cholelithiasis. No gallbladder wall thickening or pericholecystic fluid. 1.4 cm low attenuating lesion in the right lobe of the liver. Subcentimeter low attenuating lesion which is too small to characterize in the left lobe of the liver Impression: No acute findings. Indeterminate 1.4 cm lesion in the right lobe of the liver could be a hemangioma. This can be further characterized with ultrasound. This document has been electronically signed by: Martina Rosenberg MD on 02/15/2025 21:20:46 Dictated By: Martina Smith MD Signed By: <Electronically signed by Martina Smith MD in OV> 02/15/252120 DD/ 19 TD/TT: 02/15/252119 Hand Former Helper: Assessment & Plan Assessment & Plan (1) Asthma: Code(s): J45.909 - Unspecified asthma, uncomplicated Category: Medical (2) COPD (chronic obstructive pulmonary disease): Code(s): J44.9 - Chronic obstructive pulmonary disease, unspecified Category: Medical (3) Multiple pulmonary nodules: Code(s): R91.8 - Other nonspecific abnormal finding of lung field Category: Medical (4) Decreased diffusion capacity: Code(s): R94.2 - Abnormal results of pulmonary function studies Category: Medical Plan Reviewed chest CT which revealed scattered small bilateral pulmonary nodules without emphysematous changes or signs suggestive of ILD. There was incidental note of dilation of the aortic root, measuring up to 4.0 cm as well as 1.4 cm low attenuating lesion in the right lobe of the liver, with recommendation for follow up with ultrasound to better characterize liver lesion as well as monitor aortic root. PCP notified with recommendations and will obtain this note stating recommendations. Will obtain prior CT from [facility] to compare stability of nodules. If unchanged since 2021 no need for further imaging. All questions were answered and patient is in agreement of plan. Will follow up PRN. Coding Level of Care Code Est Pt Level 4 (50554) Diagnoses Asthma J45.909 COPD (chronic obstructive pulmonary disease) J44.9 Multiple pulmonary nodules R91.8 Decreased diffusion capacity R94.2
--- OUTSIDE RECORDS SUMMARY | 2025-02-24 10:55 | XMS_ITS | Data Portability ---
Author Organization [place] - [facility], Allergy Address [address] [address] Care Team Providers Care Biomathematician Name Role Phone NATHEN MAYFIELD Primary Care Provider [phone] Assessment Encounter Date Assessment Date Assessment LastModified [...] modifications also discussed. Follow-up here as needed. [email or web address] Not available 09/29/2024 12:08:18 01/12/2025 01/12/2025 74-year-old male presents for cerumen removal. Cerumen removed bilaterally. TMs normal to inspection. Follow-up in 6 months for repeat procedure. [email or web address] Not available 01/12/2025 15:22:39 Plan of Treatment Reminders Order Date Submit Date Provider Last Modified By Organization Details Last Modified Time Details Appointments Establish ed 15 2024 11:15A M PRABHJOT BANKS PA-C Not available Not available Not available Lab None recorded. Referral None recorded. Procedures None recorded. Surgeries None recorded. Imaging None recorded. Medication Orders fluticaso ne propionat e 50 mcg/actua tion nasal spray,negrito pension 2023 024 [id number], [address] [place] [address], [place], [address], 07/31/2024 12:01:01 Patient TargetsNo targets recorded. Patient InstructionsNo instructions recorded. Reason for Referral None Reported. Results Created Date Observation Date Name Description Value Unit Range Abnormal Flag Note LastModifiedBy Organization Detail LastModifiedTime 07/31/20 24 audio gram No observ ation record ed. [email or web address] Not Available 08/2024 14:38:20 Result Notes None recorded. Problems Name Problem SNOMED Code Status Onset Date Resolution Date Notes Provider Name and Address Organization Details Recorded Time Acute sinusiti s 09374600 Completed 201705/22/2024 Other acute sinusiti s; Note: Date Diagnose d: 12/20/2017 1:37 PM (J01.80) Not Available [facility] 4 03:19:27 Sensorin eural hearing loss of bilatera l ears 825133279 Active 2018 Sensorin eural hearing loss, bilatera l; Note: Date Diagnose d: 9 5:11 PM (H90.3) Not Available [facility] 4 03:19:26 Bilatera l disorder of Eustachi an tubes 85052300657 30811 Active 2018 Other specifie d disorder s of Eustachi an tube, bilatera l; Note: Date Diagnose d: 9 10:24 AM (H69.83) Not Available [facility] 4 03:19:26 Headache 11405299 Active 2017 Facial pain NOS; Note: Date Diagnose d: 12/20/2017 1:37 PM (R51) Not Available [facility] 4 03:19:26 Tinnitus of right ear 98496487316 08 Active 2023 CARISSA COVARRUBIAS MA, CCC-A [address] [facility],[address], [place], [place], [address] , [facility] - [facility] [place] 4 11:15:02 Impacted cerumen of bilatera l ears 45693679883 52351 Active 2023 PRABHJOT BANKS PA-C [address] [facility],[place] [facility], [place], [address] , [facility] - [facility] [place] 4 12:00:04 Posterio r rhinorrh ea [id number] [facility] 2023 PRABHJOT BANKS PA-C [address] [place] [address],[place] [facility], [place], [address] , [facility] - [facility] [place] 4 12:00:32 Chronic hoarsene ss 16736001583 05 Active 2023 PRABHJOT BANKS PA-C [address] [facility],[place] [facility], [place], [address] , [facility] - [facility] [place] 4 12:08:31 Dysphagi a 14259813 Active 2023 PRABHJOT BANKS PA-C [address] [facility],[place] [facility], [place], [address] , [facility] - [facility] [place] 4 12:08:34 Gastroes ophageal reflux disease without esophagi tis 561875154 Active 2023 PRABHJOT BANKS PA-C [address] [facility],[place] [facility], [place], [address] , [facility] - [facility] [place] 4 12:08:37 Problem Notes None recorded. Procedures Surgical History Date Name Laterality Status Provider Name and Address Organization Details Recorded Time 5 Cerumen removal without microscope bilat completed PRABHJOT BANKS PA-C [address] [facility],[place] [address], [place], [address], [facility] - [facility] 01/12/2025 15:22:05 4 FOL_Reflux_JMS completed PRABHJOT BANKS PA-C [address] [facility] [address], [place], [address], [facility] - [facility] 09/29/2024 12:07:30 4 Cerumen removal without microscope bilat completed PRABHJOT BANKS PA-C [address] [facility],[place] [address], [place], [address], [facility] - [facility] 07/31/2024 11:59:21 4 Air & Speech Audio with Tymps - 32432, 74002 & 17513 completed CARISSA COVARRUBIAS MA, CCC-A [address] [facility],[place] [address], [place], [address], [facility] - [facility] 07/31/2024 11:14:33 Imaging Results Imaging Date Name Status LastModified by Organiz ation Details LastModified Time 07/31/2024 audiogram completed [employer] Information not available 07/31/2024 14:38:20 Procedure Notes [...] tablet TAKE 1 TABLET BY MOUTH DAILY 01/12 completed Not Available Not Available Not Available famotidin e 40 mg tablet TAKE [...] 5 DROPS INTO BOTH EARS TWICE DAILY B34YNIC. TILD HEAD SO EAR TO BE TREATED POINTS TOWARDS CEILING AND HOLD DROPS IN EAR USING COTTON BALL 01/12 completed Not Available Not Available Not Available pimecroli mus 1 % topical cream [...] dose pack 01/28 completed Medicati on ID: [id number] D uration Value: 6 Brand Name: methylhiwot martínez Send Method: E-Prescr ibed Sub s Allowed: subs OK Speci al Instruct ion: TAKE DIRECTED Medicat ionGener icName: methylpr edluisitoolo ne Not Available Not Available Not Available albuterol sulfate HFA 90 mcg/actua tion aerosol inhaler INHALE 2 PUFFS INTO THE LUNGS EVERY 4 HOURS NEEDED FOR COUGH, WHEEZING OR SHORTNES S OF BREATH. active Not Available Not Available No t Available fluticaso ne propionat e 50 mcg/actua tion nasal spray,negrito pension SPRAY 2 SPRAYS INTO EACH NOSTRIL EVERY DAY active Not Available Not Available No t Available dicyclomi ne 10 mg capsule TAKE 1 CAPSULE (10 MG TOTAL) BY MOUTH 4 TIMES A DAY NEEDED ABDOMINA L PAIN OR CRAMPS active Not Available Not Available No t Available finasteri de 5 mg tablet TAKE 1 [...] mg tablet 01/28 completed Medicati on ID: [id number] D uration Value: 7 Brand Name: ubaldo ycin Sen d Method: E-Prescr ibed Sub s Allowed: subs OK Speci al Instruct ion: TAKE 1 TABLET DAILY FOR 7 DAYS Med icationG enericNa me: ubaldo ycin Not Available Not Available Not Available Gavilyte- C 240 gram-22.7 2 gram-6.72 gram-5.84 gram oral solution 01/28 completed Medicati on ID: [id number] D uration Value: 1 Brand Name: GaviLyte -C Send Method: E-Prescr ibed Sub s Allowed: subs OK Speci al Instruct ion: USE DIRECTED Medicat ionGener icName: GaviLyte -C Not Available Not Available Not Available Vitals Date Recorded Body height Provider Name an d Address Organization Details Last Updated DateTime 01/12/2025 177.8 cm ALYSSA ADLER [place] [facility] 01/12/2025 14:37:58 Date Recorded Body height Body mass index (BMI) Body weight Provider Name and Address Organization Details Last Updated DateTime 07/31/2024 177.8 cm 28 kg/m2 35710.51 g Leann Castellanos [place] - [facility] 07/31/2024 11:20:56 Date Recorded Body height Body mass index (BMI) Body weight Provider Name and Address Organization Details Last Updated DateTime 09/29/2024 177.8 cm 28 kg/m2 24006.51 g Marcelina Antoine [place] - [facility] 09/29/2024 10:56:38 Social History None recorded. Functional Status None recorded. Mental Status None recorded. Family History Nothing Reported. Medical History No medical history recorded. Past Encounters Encounter ID Performer Location Encounter Start Date Encounter Closed Date Diagnosis/Indication Diagnosis SNOMED-CT Code Diagnosis ICD10 Code Diagnosis Note [id number] PRABHJOT BANKS PA-C [facility] [address] [address] 07/31/2024 10:32:13 07/31/2024 12:14:54 Sensorineural hearing loss of bilateral ears 194680072 H90.3 Audiologic al evaluation results: Right ear: [...] amplificat ion Tinnitus of right ear 48 57132992 108 H93.11 Impacted c erumen of bilateral ears 8006290713 178607 H61.23 Posterior rhinorrhea 758 45297 R09.82 [id number] PRABHJOT BANKS PA-C [facility] [address] [address] 09/29/2024 10:40:12 09/29/2024 11:34:30 Posterior rhinorrhea 21512660 R09.82 Chronic hoarseness 03084 66087 105 R49.0 Dysphagia 50810546 R13.1 0 Gastroesop hageal reflux disease without esophagitis 670499601 K21.9 [id number] PRABHJOT BANKS PA-C [facility] [address] [place] [address] 01/12/2025 14:26:47 01/12/2025 15:24:16 Impacted cerumen of bilateral ears 5020518838 516242 H61.23 Sensorineu ral hearing loss of bilateral ears 681681014 H90.3 Health Concerns Section Related Observation LastModified by Organization Detai ls LastModified Time None Recorded Concern Status LastModified by Organization Details LastModified Time None Recorded Advance Directives Directive None Recorded Payers Insurance Date Sequence Insurance Name Policy Number Policy Blunt Covered Member ID Blunt Member ID Guarantor Name 09/29/[address] [facility] (MEDICARE REPLACEMENT/AD VANTAGE - PPO) [id number] Olvin Figueroa [id number] Olvin Fiugeroa 01/12/2025 1 [employer] (MEDICARE REPLACEMENT PPO) [id number] Olvin Figueroa [id number] Olvin Figueroa Notes Date Note Type Note [...] other red flag symptoms. TAWANA UGALDE MD [address] [place] [address], [address], [facility] - [facility] 07/31/2024 16:32:47 09/29/2024 text/html 74-year-old male [...] GI. Takes famotidine daily. DENNY NORMAN MD [address] [place] [address],[address], [address], [facility] - [facility] 09/30/2024 13:19:50 01/12/2025 text/html 74-year-old male presents for cerumen removal. Recently obtained hearing aids and was told he had significant cerumen impaction. Continues to have mild tinnitus. DEWEY SWIFT MD [address] [place] [address], [address], [facility] - [facility] 01/13/2025 14:15:46
== END 2025-02-24 10:29 | disposition home or self-care (01) ==
LOC: HO.HPSW 09:54
PROVIDERS: PCP Physician Assistant Medical; Visit Provider Nurse Practitioner Family
DX: J45.909 Unspecified asthma, uncomplicated (principal); J44.9 Chronic obstructive pulmonary disease, unspecified; R91.8 Other nonspecific abnormal finding of lung field; R94.2 Abnormal results of pulmonary function studies
CPT/HCPCS: 99214

== ENCOUNTER → 2025-02-24 09:54 | Outpatient (BNVA) | payer MEDICARE, SELFPAY | PROVIDERS: PCP Physician Assistant Medical; Visit Provider Nurse Practitioner Family | DX: J45.909 Unspecified asthma, uncomplicated (principal); J44.9 Chronic obstructive pulmonary disease, unspecified; R91.8 Other nonspecific abnormal finding of lung field; R94.2 Abnormal results of pulmonary function studies | CPT/HCPCS: 99212 ==

== ENCOUNTER 2025-04-15 11:04 | Outpatient (REF) | payer MEDICARE, SELFPAY ==
--- NOTE | ~2025-04-15 | US_ITS ---
CLINICAL HISTORY: 1.4 CM LESION RIGHT LOBE OF LIVE US abdomen complete Comparison: None provided Findings: The visualized pancreas is normal. The aorta and inferior vena cava are normal caliber. The liver is normal in size. Right hepatic lobe cyst measuring 21 mm. There is no intrahepatic bile duct dilatation. The common duct is 6 mm in diameter. Multiple calculi within the gallbladder lumen. No gallbladder wall thickening. Negative sonographic Slade's sign. The right kidney is 9.8 cm in length. The left kidney is 11.9 cm in length. The spleen is normal. No ascites. IMPRESSION: 1. Normal complete abdominal ultrasound. This document has been electronically signed by: Iram Tran MD on 04/16/2025 14:44:37
--- OUTSIDE RECORDS SUMMARY | 2025-04-15 13:12 | XMS_ITS | Patient Health Record ---
[facility] Address [address] [facility] [place] [address] Care Team Providers Care Society Reporter Name Role Phone Franklyn Elmer Primary Care Provider UnavailAfia Ardon Unavailable [phone] Oli Fontaine Unavailable Unavailable Allergies No Known Allergies Reason For Referral No Information Medications Medication SIG (Take, Route, Frequency, Duration) Notes Start Date End Date Status hydroCHLOROthiazide 25 MG as directed Or ally Once a day Active Horse [place] Activ e Lisinopril 20 MG Orally Act mike Colcrys 0.6 MG 1 tablet Orally Up to Four times a day; Duration: 5 days 02/08/2023 Not-Taking Milk Thistle Active Lipoflavonoid Active Compression Stockings 20-30m m Hg 1 pair wear daily; Duration: 30 days Active Cinnamon Active Turmeric Active Ashwagandha Active Fish Oil Active Centrum Silver Activ e Vitamin A & D Active Saw [place] Active Amoxicillin-Pot Clavulanate 875 875-125 MG 1 tablet Orally every 12 hrs Not-Taking Colchicine 0.6 MG 1 tablet Orally 02/11/2023 Not-Taking Ginkgo Biloba Active CoQ-10 Active Calcium & Magnesium Carbonates Active Coconut Oil Not-Taki ng Famotidine 40 MG 1 tablet at bedtime Orally Once a day; Duration: 30 day(s) Active Omeprazole 20 MG 1 capsule 30 minutes before morning meal Orally Once a day; Duration: 30 day(s) Not-Taking Loratadine 10 MG 1 tablet Orally Once a day; Duration: 30 day(s) Active ASO Ankle/Foot Stablizing AFO As directe d Wear Daily; Duration: as needed 04/12/2020 Not-Taking Finasteride Active Naproxen 500 MG 1 tablet with food or milk as needed Orally every 12 hrs; Duration: 30 days 04/12/2020 Not-Taking Vitamin C Active [...] Problem Status W/U Status Risk Notes Problem Acquired hallux valgus (57582761) Hallux valgus (acquired), right foot (M20.11) Active confirmed Problem Gout (79456346) Gout of right ankle (M10.9) Active confirmed Rx drug management (4) Problem Gout (04257218) Gout of left foot (M10.9) Active confirmed Rx drug management (4) Problem Gout (16268539) Gout of right foot (M10.9) Active confirmed Rx drug management (4) Problem Gout (33429203) Gout of left ankle (M10.9) Active confirmed Rx drug management (4) Problem 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 (859000777) 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) Active confirmed Rx drug management (4) Problem Chronic gouty arthritis (42881757) 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) Active confirmed Rx drug management (4) Problem Localized, primary osteoarthritis of the ankle and/or foot (036364122) 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) Active confirmed Problem Localized, primary osteoarthritis of the ankle and/or foot (954482884) Osteoarthritis of left ankle or foot (M19.072) Active confirmed Plan Of Treatment Pending Test Test Name Order Date *CBC With Differential/Platelet 02/09/20 X ray : Foot, right 3V 02/08/2023 Insurance Providers Payer Name Payer Address Payer Phone Subscriber Number Group Number Insured Name Patient Relationship to Insured Coverage Start Date Coverage End Date [employer] Medicare [id number] [address] [address] [place] [address] [id number] Olvin Figueroa Self - patient is the insured Medical (General) History Medical History History ICD Code Chicken pox High blood pressure Measles Mumps Benign tumor (LT shoulder) Arthritis Diverticulosis Gout Lung disease Psoriasis Gastroesophageal reflux disease (GERD) Surgical History Surgery Date(Month/Year) shoulder surgery
== END 2025-04-15 11:05 | disposition home or self-care (01) ==
LOC: HO.US 11:04
PROVIDERS: PCP Physician Assistant Medical; Visit Provider Physician Assistant Medical
DX: K76.89 Other specified diseases of liver (principal)
CPT/HCPCS: 76700

== ENCOUNTER → 2025-04-15 11:06 | Outpatient (BNV) | payer MEDICARE, SELFPAY | PROVIDERS: PCP Physician Assistant Medical; Visit Provider Radiology Diagnostic Radiology | DX: K76.89 Other specified diseases of liver (principal) | CPT/HCPCS: 76700 ==

== ENCOUNTER 2025-08-12 15:20 | Outpatient (REF) | payer MEDICARE, SELFPAY ==
--- OUTSIDE RECORDS SUMMARY | 2025-08-12 19:10 | XMS_ITS | Data Portability ---
Author Organization [place] - [facility], Allergy Address [address] [address] Care Team Providers Care Hooking Machine Operator Name Role Phone TRAN NATHEN Primary Care Provider Assessment Encounter Date Assessment [...] modifications also discussed. Follow-up here as needed. [email or web address] Not available 09/29/2024 12:08:18 01/12/2025 01/12/2025 74-year-old male presents for cerumen removal. Cerumen removed bilaterally. TMs normal to inspection. Follow-up in 6 months for repeat procedure. [email or web address] Not available 01/12/2025 15:22:39 07/20/2025 07/20/2025 75 year old male presents for cerumen removal. On exam, bilateral cerumen impaction present with no erythema, edema or drainage. Cerumen removed with suction and forceps, and tympanic membranes visualized with no signs of infection or perforation. Follow-up in 6 months. [email or web address] Not available 07/20/2025 11:59:04 Plan of Treatment Reminders Order Date Submit Date Provider Last Modified By Organization Details Last Modified Time Details Appointments Establish ed 15 2025 11:15A M PRABHJOT BANKS PA-C Not available Not available Not available Lab None recorded. Referral None recorded. Procedures None recorded. Surgeries None recorded. Imaging None recorded. Medication Orders fluticaso ne propionat e 50 mcg/actua tion nasal spray,negrito pension 2023 024 [facility] #[id number], [address] [place] [address], [place], [address], 07/31/2024 12:01:01 Patient TargetsNo targets recorded. Patient [...] Organization Details Recorded Time Acute sinusiti s [id number] Completed 201705/22/2024 Other acute sinusiti s; Note: Date Diagnose d: 12/20/2017 1:37 PM (J01.80) Not Available [facility] 03:19:27 Headache 20459108 Active 2017 Facial pain NOS; Note: Date Diagnose d: 12/20/2017 1:37 PM (R51) Not Available [facility] 4 03:19:26 Bilatera l disorder of Eustachi an tubes [id number] 47012 Active 2018 Other specifie d disorder s of Eustachi an tube, bilatera l; Note: Date Diagnose d: 9 10:24 AM (H69.83) Not Available [facility] 4 03:19:26 Sensorin eural hearing loss of bilatera l ears 110283488 Active 2018 Sensorin eural hearing loss, bilatera l; Note: Date Diagnose d: 9 5:11 PM (H90.3) PRABHJOT BANKS PA-C [address], [place], [address] , [facility] - [facility] 5 11:59:10 Tinnitus of right ear 98673297865 08 Active 2023 CARISSA COVARRUBIAS [place], [facility] [address] [place] [facility], [place], [place], [address] , [facility] - [facility] 4 11:15:02 Impacted cerumen of bilatera l ears 42513144298 64701 Active 2023 PRABHJOT BANKS PA-C [address], [place], [address] , [facility] - [facility] [place] 5 11:59:07 Posterio r rhinorrh ea 66561024 Active 2023 PRABHJOT BANKS PA-C [address], [place], [address] , [facility] - [facility] 4 12:00:32 Chronic hoarsene ss 69235301511 05 Active 2023 PRABHJOT BANKS PA-C [address], [place], [address] , [facility] - [facility] 4 12:08:31 Dysphagi a 16181417 Active 2023 PRABHJOT BANKS PA-C [address] [place],[address], [place], [address] , [facility] - [facility] 4 12:08:34 Gastroes ophageal reflux disease without esophagi tis 796710144 Active 2023 PRABHJOT BANKS PA-C [address] [place] [facility], [place], [address] , [facility] - [facility] 4 12:08:37 Problem Notes None recorded. Procedures Surgical History Date Name Laterality Status Provider Name and Address Organization Details Recorded Time 5 Cerumen removal without microscope bilat completed PRABHJOT BANKS PA-C [address] [facility] [place] [address], [place], [address], [facility] - [facility] 07/20/2025 11:58:50 5 Cerumen removal without microscope bilat completed PRABHJOT BANKS PA-C [address] [place], [place] [address]on [place] [address], [place], [address], [facility] - [facility] 01/12/2025 15:22:05 4 FOL_Reflux_JMS completed PRABHJOT BANKS PA-C [address] [facility] [place] [facility], [place], [address], [facility] - [facility] 09/29/2024 12:07:30 4 Cerumen removal without microscope bilat completed PRABHJOT BANKS PA-C [address] [facility] [place] [address], [place], [address], [facility] - [facility] 07/31/2024 11:59:21 4 Air & Speech Audio with Tymps - 07053, 04072 & 92923 completed CARISSA COVARRUBIAS MA, CCC-A [address] [facility] [place] [address], [place], [address], [facility] - [facility] 07/31/2024 11:14:33 Imaging Results None recorded. [...] 5 DROPS INTO BOTH EARS TWICE DAILY T33UOGH. TILD HEAD SO EAR TO BE TREATED POINTS TOWARDS CEILING AND HOLD DROPS IN EAR USING COTTON BALL 01/12 completed Not Available Not Available Not Available pimecroli mus 1 % topical cream APPLY TO TO THE AFFECTED AREA OF PSORIASI S ON THIN-SKI NNED AREAS TWICE DAILY NEEDED active Not Available Not Available No t Available dicyclomi ne 20 mg tablet TAKE 1 TABLET (20 MG) BY ORAL ROUTE 3 TIMES PER DAY NEEDED active Not Available Not Available No [...] dose pack 01/28 completed Medicati on ID: [id number] D uration Value: 6 Brand Name: methylhiwot jody mauricio Send Method: E-Prescr ibed Sub s Allowed: subs OK Speci al Instruct ion: TAKE DIRECTED Medicat ionGener icName: methylpr ednisolo ne Not Available Not Available Not Available [...] mg tablet 01/28 completed Medicati on ID: [id number] D uration Value: 7 Brand Name: azithrom ycin Sen d Method: E-Prescr ibed Sub s Allowed: subs OK Speci al Instruct ion: TAKE 1 TABLET DAILY FOR 7 DAYS Med icationG enericNa me: azithrom ycin Not Available Not Available Not Available Gavilyte- C 240 gram-22.7 2 gram-6.72 gram-5.84 gram oral solution 01/28 completed Medicati on ID: [id number] D uration Value: 1 Brand Name: GaviLyte -C Send Method: E-Prescr ibed Sub s Allowed: subs OK Speci al Instruct ion: USE DIRECTED Medicat ionGener icName: GaviLyte -C Not Available Not Available Not Available Vitals Date Recorded Body height Provider Name an d Address Organization Details Last Updated DateTime 01/12/2025 177.8 cm ALYSSA ADLER [place] - [facility] 01/12/2025 14:37:58 Date Recorded Body height Body mass index (BMI) Body weight Provider Name and Address Organization Details Last Updated DateTime 07/20/2025 177.8 cm 28 kg/m2 49062.51 g Radha Katz [place] - [facility] 07/20/2025 10:59:43 Date Recorded Body height Body mass index (BMI) Body weight Provider Name and Address Organization Details Last Updated DateTime 07/31/2024 177.8 cm 28 kg/m2 08996.51 g Leann Castellanos [facility] 07/31/2024 11:20:56 Date Recorded Body height Body mass index (BMI) Body weight Provider Name and Address Organization Details Last Updated DateTime 09/29/2024 177.8 cm 28 kg/m2 60617.51 g Marcelina Antoine [facility] 09/29/2024 10:56:38 Social History None recorded. Functional Status None recorded. Mental Status None recorded. Family History Nothing Reported. Medical History No medical history recorded. Past Encounters Encounter ID Performer Location Encounter Start Date Encounter Closed Date Diagnosis/Indication Diagnosis SNOMED-CT Code Diagnosis ICD10 Code Diagnosis IMO Codes Diagnosis Note [id number] PRABHJOT BANKS PA-C [facility] [address] [address] 07/31/2024 10:32:13 07/31/2024 12:14:54 Sensorineural hearing loss of bilateral ears 337689261 H90.3 Audiologic al evaluation results: Right ear: Normal hearing thru 1000Hz sloping to a mild to severe SNHL with excellent word recognitio n. Left ear: Normal hearing thru 1000Hz sloping to a mild to moderate SNHL with excellent word recognitio n. Tympanomet ry: Right Ear:Type A Left Ear:Type ARec.: Trial amplificat ion Tinnitus of right ear 48 28762004 108 H93.11 Impacted c erumen of bilateral ears 5832691966 623415 H61.23 Posterior rhinorrhea 758 02466 R09.82 [id number] PRABHJOT BANKS PA-C [facility] [address] [address] 09/29/2024 10:40:12 09/29/2024 11:34:30 Posterior rhinorrhea 15740125 R09.82 Chronic hoarseness 93675 18627 105 R49.0 Dysphagia 49603444 R13.1 0 Gastroesop hageal reflux disease without esophagitis 725842648 K21.9 [id number] PRABHJOT BANKS PA-C [facility] [address] [address] 01/12/2025 14:26:47 01/12/2025 15:24:16 Impacted cerumen of bilateral ears 3500324423 559049 H61.23 Sensorineu ral hearing loss of bilateral ears 838085558 H90.3 [id number] PRABHJOT BANKS PA-C [facility] [place] [address] [facility] [place] [address] 07/20/2025 10:52:16 07/20/2025 11:25:19 Impacted cerumen of bilateral ears 8330425420 509099 H61.23 Sensorineu ral hearing loss of bilateral ears 586613655 H90.3 Health Concerns Section Related Observation LastModified by Organization Detai ls LastModified Time None Recorded Concern Status LastModified by Organization Details LastModified Time None Recorded Advance Directives Directive None Recorded Payers Insurance Date Sequence Insurance Name Policy Number Policy Blunt Covered Member ID Blunt Member ID Guarantor Name 09/29/2024 1 [facility] (MEDICARE REPLACEMENT/A DVANTAGE - PPO) [id number] Olvin Figueroa [id number] Olvinbaylee Figueroa 07/20/2025 1 COUNT INCLUDES THE [facility] (MEDICARE REPLACEMENT/A DVANTAGE - PPO) [id number] Olvin Figueroa [id number] Olvin Figueroa Notes Date Note Type Note Provider Name and Address Organization Details Recorded Time 07/31/2024 text/html ROS as noted in the HPI 74-year-old male presents for updated hearing test [...] red flag symptoms. TAWANA UGALDE MD [address] [address], [place], [address], [facility] - [facility] 07/31/2024 16:32:47 09/29/2024 text/html ROS as noted in the [facility] 74-year-old male presents for reevaluation of hoarseness and swallowing concern. Was prescribed Flonase at last visit as he felt his postnasal drip was causing dysphagia. Flonase has helped significantly with hoarseness and swallowing difficulty. He has been having more breakthrough reflux. 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 Takes famotidine daily. DENNY NORMAN MD [address] [facility] [place],[address], [address], [facility] 09/30/2024 13:19:50 01/12/2025 text/html ROS as noted in the [facility] 74-year-old male presents for cerumen removal. Recently obtained hearing aids and was told he had significant cerumen impaction. Continues to have mild tinnitus. DEWEY SWIFT MD [address] [facility] [place],[address], [address], [facility] 01/13/2025 14:15:46 07/20/2025 text/html ROS as noted in the [facility] 75 year old male presents for cerumen removal. He wears bilateral hearing aids. Denies ear pain, drainage, trauma, or increased hearing loss. Reports continued and increasing right sided tinnitus. CINDY FAIRBANKS MD [address] [facility] [place] [address], [address], [facility] - [facility] 07/20/2025 12:37:32
--- OUTSIDE RECORDS SUMMARY | 2025-08-12 19:10 | XMS_ITS | Clinical Summary ---
Author Organization 175 [facility] Address [address] [place] [address] Phone Care Team Providers Care Hand Bookbinder Name Role Phone Elmer Estes MD Primary Care Provider [phone] Allergies Active Allergy Reactions Criticality Noted Date Comments Labetalol Unknown 05/07/2022 Causes prostate to enlarge Medications lisinopriL (PRINIVIL,ZESTR IL) 20 mg tablet Take 1 tablet (20 mg total) by mouth 1 (one) time each day. 04/09/2024 Active albuterol HFA (PROAIR HFA ; PROVENTIL HFA ; VENTOLIN HFA) 90 mcg/actuation inhaler Inhale 2 puffs by mouth every 4 (four) hours if needed. Active finasteride (PROSCAR) 5 mg tablet Take [...] ORAL Take by mouth. Active Ca carb-D3-mag jx-uij-npkp-Zn 600 mg-20 mcg- 40 mg-0.25 mg tablet,chewable [...] pain or cramps). 60 capsule 09/29/2024 Active loratadine (CLARITIN) 10 mg tablet TAKE 1 TABLET BY MOUTH EVERY DAY 90 tablet 1 01/26/2025 Active famotidine (PEPCID) 40 mg tabletIndicatio ns:Esophageal dyskinesia TAKE 1 TABLET BY MOUTH EVERY DAY 90 tablet 3 05/12/2025 Active Active Problems Problem Noted Date Diagnosed [...] skin 06/19/2021 Elevated PSA 06/19/2021 Seizure disorder ([facility] V24, [facility] V28) 05/23 Atypical migraine 06/19/2021 Rheumatoid myopathy with rhe umatoid arthritis ([facility] V24, [facility] V28) 06/19/2021 Achilles bursitis 06/19/2021 Heberden's node 06/19/2021 Low back pain 06/19/2021 Localized swelling of right foot 06/19/2021 Meniere's disease 06/19/2021 Overview (07/27/2024): R ear. Psoriasis 06/19/2021 Overview (07/27/2024): Face and thighs. Lung field abnormal 06/19/2021 Strain of muscle, fascia and tendon of abdomen, initial encounter 06/19/2021 Mixed dysphasia 06/19/2021 Insomnia 06/19/2021 Loss of consciousness ([facility] V24, [facility] V28) 06/19/2021 Duodenal erosion 03/31/2018 Dysphagia 02/25/2018 Lipoma of colon 01/13/2018 Chronic obstructive pulmonar y disease ([facility] V24, [facility] V28) 01/03/2018 ED (erectile dysfunction) 05/28/2017 Essential hypertension 07/27/2015 Hyperlipidemia 07/27/2015 Elevated fasting blood sugar 07/27/2015 Achilles tendinitis 07/27/2015 Overview (07/27/2024): Bilateral lower extremities 06/26/2016. Emphysema lung ([facility] V24, [facility] V28) 2014 Rheumatoid arthritis ([facility] V24, [facility] V28) 07/25/2015 Allergic rhinitis 05/23/2015 Sleep disorder [...] Encounters Date Type Department Care Team Description 08/04/2025 9:20 AM EDT Office Visit Gastroenterology - [place] [address] [facility] [address] [place] [address] Ben Nieves MD Pharyngeal dysphagia (Primary Dx); Diverticulosis; Gastroesophageal reflux disease without esophagitis from Last 3 Months Immunizations Immunization Administration Dates Next Due Influenza trivalent, 0.5mL [...] subun it RSVpreF, 0.5mL, Preservative Free (Arexvy) 50yo and older 09/17/2023 Tdap Tetanus diptheria acell [...] joint disorder Syncope 06/19/2021 DX:Syncope Supraventricular tachycardia ([facility] V24) 06/19/2021 DX:Supraventricular tachycar miri (HCC) Rheumatoid myopathy with rhe umatoid arthritis ([facility]/HCC V24, [facility]/HCC V28) 06/19/2021 DX:Rheumatoid carmen sammy with rheumatoid arthritis (HCC) Rheumatoid arthritis ([facility]/ C V24, [facility]/HCC V28) 07/25/2015 DX:Rheumatoid arthritis (HCC ) Pulmonary nodules 07/19/2014 DX:Pulmonary n odules [...] dyskinesia 07/21/2014 DX:Esophag eal dyskinesia Emphysema lung ([facility] V24, [facility] V28) 07/27/2015 DX:Emphysema lung ([facility]) Elevated PSA 06/19/2021 DX:Elevated PSA Dysphagia 02/25/2018 DX:Dysphagia Duodenal erosion 03/31/2018 DX:Duodenal ero austyn Atypical migraine 06/19/2021 DX:Atypical mi graine Allergic rhinitis 05/23/2015 DX:Allergic rh initis Achilles bursitis 06/19/2021 DX:Achilles bu rsitis ED (erectile dysfunction) 05/28/2017 DX:ED (erectile dysfunction) Decreased libido 12/21/2013 DX:Decreased li marisa Constipation 06/19/2021 DX:Constipation Chronic obstructive pulmonar y disease ([facility] V24, [facility] V28) 01/03/2018 DX:Chronic obstructive pulm onary disease ([facility]) Benign prostatic hyperplasia without urinary obstruction 12/27/2014 DX:Benign prostatic hyperpla shane without urinary obstruction 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/19/2014 DX: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 Seizure disorder ([facility] V2 4, [facility] V28) 06/19/2021 DX:Seizure disorder ([facility]) Gastroesophageal reflux dise ase without esophagitis 06/19/2021 DX:Gastroesophageal reflux d isease without esophagitis; COMMENT: Hx erosive esophagitis 03/31/2018 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 Lung field abnormal 06/19/2021 DX:Lung fiel d abnormal SSBE (short-segment Osorio' s esophagus) 06/19/2021 DX:SSBE (short-segment Red Bud tt's esophagus) Psoriasis DX:Psoriasis Family History Medical [...] Sign Reading Time Taken Comments Blood Pressure 104/74 08/04/2025 9:46 AM EDT Pulse 74 08/04/2025 9:46 AM EDT Temperature - - Respiratory Rate - - Oxygen Saturation - - Inhaled Oxygen Concentration - - Weight 82.6 kg (182 lb) 08/04/2025 9:46 AM EDT Height 177.8 cm (5' 10 ) 08/04/2025 9:46 AM EDT Body Mass Index 26.11 08/04/2025 9:46 AM EDT Plan of Treatment Upcoming Encounters Date Type Department Care Team (Late st Contact Info) Description 08/19/2025 1:15 PM EDT Office Visit Nephrology - [place] [address] [place] [address] Sumit Wood MD [address] [facility] [address] [place] [address] Health Maintenance Due Date Last Done Comments Falls Risk Assessment 09/29/2022 Hepatitis C Screening 09/29/2022 Medicare Annual Wellness Visit 09/29/2022 Social Influencers of Health Screening 09/29/2022 Depression Screening 10/21/2024 Hypertension/CHF/CAD Annual BMP Blood Test 02/19/2025 02/20/2024 COVID-19 Vaccine (8 - Pfizer risk 2023- season) 2025 08/25/2024, 10/04/2023, 08/22/2022, Additional history exists DTaP,Tdap,and Td Vaccines (2 - Td or Tdap) 10/31/2025 10/31/2015 Cholesterol Screening (Lipid Panel) 12/18/2028 12/18/2023 Pneumococcal Vaccine: 50+ Years Completed 08/29/2023 RSV Immunization Adult Patients Completed 09/17/2023 Zoster Vaccines Completed 01/29/2024, 11/2023, 08/17/2011 Influenza Vaccine Completed 07/30/2025, , 07/12/2023, Additional history exists HIB Vaccines Aged Out No longer eligi [...] topic Insurance [employer] MEDICARE ADVANTAGE Care Teams Hand Bookbinder Relationship Specialty Start Date End Date Elmer Estes MD [address] [place] [address] PCP - General 09/04/23
--- OUTSIDE RECORDS SUMMARY | 2025-08-12 19:10 | XMS_ITS | Patient Health Record ---
Author Organization [facility] Address [address] [facility] [place] [address] Care Team Providers Care Tram Operator Name Role Phone Franklyn lEmer Primary Care Provider UnavailAfia Ardon Unavailable [phone] Oli Fontaine Unavailable Unavailable Allergies No Known Allergies Reason For Referral No Information Medications Medication SIG (Take, Route, Frequency, Duration) Notes Start Date End Date Status hydroCHLOROthiazide 25 MG as directed Or ally Once a day Active Horse [place] Activ e Lisinopril 20 MG Orally Act mike Colcrys 0.6 MG 1 tablet Orally Up to Four times a day; Duration: 5 days 02/08/2023 Not-Taking Milk Thistle Active Lipoflavonoid Active Compression Stockings 20-30m m Hg 1 pair wear daily; Duration: 30 days Active Cinnamon Active Turmeric Active Ashwagandha Active Fish Oil Active Centrum Silver Activ e Vitamin A & D Active Saw Beech Bottom Active Amoxicillin-Pot Clavulanate 875 875-125 MG 1 [...] Status Risk Notes Problem Acquired hallux valgus (25940743) Hallux valgus (acquired), right foot (M20.11) Active confirmed Problem Gout (80942602) Gout of right ankle (M10.9) Active confirmed Rx drug management (4) Problem Gout (46118394) Gout of left foot (M10.9) Active confirmed Rx drug management (4) Problem Gout (68696996) Gout of right foot (M10.9) Active confirmed Rx drug management (4) Problem Gout (21694232) Gout of left ankle (M10.9) Active confirmed Rx drug management (4) Problem 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 (195128469) 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) Active confirmed Rx drug management (4) Problem Chronic gouty arthritis (76819275) 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) Active confirmed Rx drug management (4) Problem Localized, primary osteoarthritis of the ankle and/or foot (148104630) 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) Active confirmed Problem Localized, primary osteoarthritis of the ankle and/or foot (109775052) Osteoarthritis of left ankle or foot (M19.072) Active confirmed Plan Of Treatment Pending Test Test Name Order Date *CBC With Differential/Platelet 02/09/20 X ray : Foot, right 3V 02/08/2023 Insurance Providers Payer Name Payer Address Payer Phone Subscriber Number Group Number Insured Name Patient Relationship to Insured Coverage Start Date Coverage End Date [employer] Medicare [id number] [address] [address] [place] [address] [id number] Olvin Figueroa Self - patient is the insured Medical (General) History Medical History History ICD Code Chicken pox High blood pressure Measles Mumps Benign tumor (LT shoulder) Arthritis Diverticulosis Gout Lung disease Psoriasis Gastroesophageal reflux disease (GERD) Surgical History Surgery Date(Month/Year) shoulder surgery
== END 2025-08-12 15:21 | disposition home or self-care (01) ==
LOC: CF 15:20
DX: Z13.89 Encounter for screening for other disorder (principal)